=== PATIENT | male | born 1950 | race Caucasian/White ===

== ENCOUNTER 2025-08-06 14:13 | Inpatient (IN) | payer OTHER, SELFPAY ==
[2025-08-06] VITALS (7 sets, daily range): BP systolic 108–123; BP diastolic 65–79; PULSE 73–119; RESP 18–24; TEMP 36.4–36.6; O2SAT 96–100; BMI 22.1
--- NOTE | ~2025-08-06 | XR_ITS ---
XR chest 1V portable 08/07/2025 05:40 Indication: Dyspnea Procedure: AP portable chest Comparison: Comparison to multiple prior studies sequentially, with oldest reviewed study dated 04/09/2018. Findings: Cardiomegaly. Mild interstitial edema. Elevated right diaphragm. There is a right-sided pacemaker with lead tips in the right atrium and right ventricle respectively. Impression: 1: Mild interstitial edema. Reviewed, dictated and finalized at location B. Impression: 1: Mild interstitial edema.
--- NOTE | ~2025-08-06 | XR_ITS ---
Examination: XR chest ET placement Clinical History: et placement + central line placement Comparison: 1 day prior Technique: Portable AP Findings: ET tube, left subclavian central line. Right pacemaker. Cardiomegaly. No pneumothorax. Scattered foci bilateral airspace disease. Elevated right hemidiaphragm. No acute bony abnormality. IMPRESSION: 1. ET tube in place. 2. Left subclavian central line. No pneumothorax. 3. Persistent foci bilateral interstitial pulmonary edema and/or multifocal airspace disease. Reviewed, dictated and finalized at location R. IMPRESSION: 1. ET tube in place. 2. Left subclavian central line. No pneumothorax. 3. Persistent foci bilateral interstitial pulmonary edema and/or multifocal ai rspace disease.
--- NOTE | ~2025-08-06 | US_ITS ---
US venous doppler LE BI INDICATION: Pain and swelling in both lower extremities. COMPARISON: None. TECHNIQUE: The deep veins of both lower extremities were evaluated with Duplex Doppler, color Doppler, and high-resolution B-mode sonography. Evaluated veins include the common femoral, femoral, and popliteal veins. The calf veins were also evaluated. Compression and augmentation maneuvers were performed. FINDINGS: DVT within the right posterior tibialis and peroneal vein as well as in the left popliteal. IMPRESSION: Bilateral DVT. Reviewed, dictated and finalized at location S. IMPRESSION: Bilateral DVT.
--- NOTE | ~2025-08-06 | XR_ITS ---
Examination: XR abdomen gastric tube insert Clinical History: OG PLACEMENT Comparison: Chest x-ray one hour prior Technique: Portable AP chest abdomen Findings/impression: 1. Exam mostly chest, with upper abdomen. 2. NG tube sidehole at GE junction, recommend further advancement. 3. No cardiopulmonary change. Reviewed, dictated and finalized at location R.
--- NOTE | ~2025-08-06 | NM_ITS ---
EXAMINATION: NM lung vent and perfusion DATE: 08/07/2025 11:33 INDICATION: Elevated d-dimer TECHNIQUE: 15.4 mCi xenon-133 by inhalation and 5.4 mCi Tc-99m MAA by intravenous route. Scintigraphic images of the chest were obtained. COMPARISON: Chest radiograph dated 08/07/2025 FINDINGS: There is homogeneous radiotracer activity throughout the lungs initially on the single breath ventilation sequence which demonstrates elevation of the right hemidiaphragm. There is a region of air trapping with delayed washout right lower lung zone. There is a large perfusion defect involving the medial and lateral segments of the right middle lobe. Small photopenic defect projecting over the anterolateral right midlung likely resulting from shadowing related to the cardiac pacemaker is seen on prior radiographs. There is otherwise relatively homogeneous perfusion throughout the lungs. IMPRESSION: 1. Nondiagnostic (low or intermediate) probability for pulmonary embolism. Reviewed, dictated and finalized at location A.
--- NOTE | 2025-08-06 14:05 | ADMGEN ---
This patient, Robert Wilson, was admitted to IMU Room 207-01. Patient/family oriented to hospital policies and general routines including ID bracelet, bed and alarms, visiting hours, pain management, procedures, bathroom and other care routines, personal items, smoking policy, room service/diet, and visiting hours. Information on how to activate the Rapid Response Team has been discussed. Patient/Family are encouraged to report perceived risks to care and to ask questions if they do not understand what they are told or what they should do.
--- OUTSIDE RECORDS SUMMARY | 2025-08-06 14:19 | XMS_ITS | Encounter Summary ---
Author Organization [facility] Healthcare Address [address] [place] [address] Care Team Providers Care Bridge Gang Worker Name Role Phone Rigoberto Ruffin MD Primary Care Provider [phone] Bert Carreon MD Unavailable [phone] Unknown, Notinfile Unavailable Unavailable Sirisha Roberson MD Unavailable [phone] Spec, Tristan CREWS Unavailable Encounter Details Date Type Department Care Team (Late st Contact Info) Description 07/13/2025 Telephone [facility] Cardiology [address] [address] Mirella Lin MA Social History Tobacco Use Types Packs/Day Years Used Date Smoking Tobacco: Never Smokeless Tobacco: Never Alcohol Use Standard Drinks/Week Comments Yes 1 (1 standard drink = 0.6 oz pur e alcohol) socially OASIS D0700: Social Isolation Answer Da te Recorded Frequency of experiencing loneliness or isolatio n Never 10/04/2024 OASIS A1250: Transportation Answer Date Recorded Lack of Transportation (Medical) No 10/04/2024 Lack of Transportation (Non-Medical) No 10/04/2024 Patient Unable or Declines to Respond No 10/04/2024 OASIS B1300: Health Literacy Answer Luciano e Recorded Frequency of needing help to read materials from doctor or pharmacy Never 10/04/2024 AUDIT-C Answer Date Recorded Q1: How often do you have a drink containing alcohol? Never 08/28/2024 Q2: How many drinks containi ng alcohol do you have on a typical day when you are drinking? Patient does not drink Q3: How often do you have si x or more drinks on one occasion? Never 08/28/2024 Personal Safety Answer Date Recorded Have you ever been in or are you currently in a harmful physical or emotional relationship or is someone making you feel afraid or unsafe? 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 Gender Identity Male 07/19/2021 10:30 AM CDT Sexual Orientation Not on file documented as of this encounter Plan of Treatment Not on file documented as of this encounter Visit Diagnoses Not on filedocumented in this encounter Care Teams Bridge Gang Worker Relationship Specialty Start [place] [address] [place] [address] PCP - General Family Practice 07/17/23 [place] [address] [place] [address] Surgeon Cardiothoracic Surgery 08/29/24 Unknown, Notinfile 08/29/24 Sirisha Roberson MD [address] [facility] [address] [place] [address] Consulting Physician Cardiology 08/29/24 Tristan Queen MD [address] [facility] [address] [place] [address] Consulting Physician Infectious Diseases 08/29/24 documented as of this encounter
--- OUTSIDE RECORDS SUMMARY | 2025-08-06 14:19 | XMS_ITS | Clinical Summary ---
Author Organization [facility] Address [address] [place] [address] Care Team Providers Care Director Of Business Continuity Name Role Phone Unavailable Primary Care Provider Unavailabl e Source Comments [facility] [employer],non-owned Affiliates and Associated Physician Practices is amultiple site organization consisting of ambulatory clinics and hospital sitesin [place], [place], [place] and [place]. This disclosure is being madepursuant to the Care Everywhere program and may not contain all information available regarding this patient. Last updated 18.[facility] [employer] Social History Tobacco Use Types Packs/Day Years Used Date Smoking Tobacco: Never Assessed Sex and Gender Information Value Date Recorded Sex Assigned at Not on file Legal Sex Male 4:16 PM CDT Gender Identity Not on file Sexual Orientation Not on file Plan of Treatment Health Maintenance Due Date Last Done Comments COLOGUARD (AGES 45-75) - COL ON CA SCREENING 1950 COLON MONITORING 1950 COLONOSCOPY - COLON CA SCREENING 1950 CT COLONOGRAPHY - COLON CA SCREENING 1950 Colorectal Cancer Screening 1950 FIT - COLON CA SCREENING 1950 FLEX SIG - COLON CA SCREENING 1950 LIPID TESTING 1950 MEDICARE AWV 12 MONTHS 1950 HEPATITIS C SCREENING 09/30/1968 DTAP/TDAP/TD VACCINES (1 - Tdap) 1969 PNEUMOCOCCAL VACCINE 50+ (1 of 1 - PCV) 2000 ZOSTER VACCINE (1 of 2) 2000 DEPRESSION SCREENING 10/08/2024 COVID-19 VACCINE (1 - 2023-2 5 season) 2025 INFLUENZA VACCINE (#1) 2025 Respiratory Syncytial Virus (RSV) Vaccine Pt: or over 60 yrs (1 - 1-dose 75+ series) 2025 HEPATITIS B VACCINE Aged Out No longe r eligible based on patient's age to complete this topic HIB VACCINE Aged Out No longer eligi ble based on patient's age to complete this topic HPV VACCINE Aged Out No longer eligi ble based on patient's age to complete this topic MENINGOCOCCAL (Group B) VACC INE SHARED DECISION-MAKING Aged Out No longer eligibl e based on patient's age to complete this topic MENINGOCOCCAL GROUPS A/C/Y/W VACCINE Aged Out No longer eligible b ased on patient's age to complete this topic Insurance [facility] MEDICARE ESSENCE MEDICARE ESSENCE MEDICARE ESSENCE MEDICARE ESSENCE MEDICARE ESSENCE MEDICARE ESSENCE MEDICARE
--- OUTSIDE RECORDS SUMMARY | 2025-08-06 14:19 | XMS_ITS | Encounter Summary ---
Author Organization [facility] Address [address] [facility] [address] [place] [address] Care Team Providers Care Sludge Filtration Attendant Name Role Phone Rock Rasmussen MD Primary Care Provider Rock Rasmussen MD Primary Care Provider Rigoberto Ruffin MD Primary Care Provider [phone] Bert Carreon MD Unavailable [phone] Unknown, Notinfile Unavailable Unavailable Sirisha Roberson MD Unavailable [phone] Tristan Queen MD Unavailable Encounter Details Date Type Department Care Team (Late st Contact Info) Description 02/13/2017 Orders Only [facility] Provider, MD He [address] [place] [address] Social History Tobacco Use Types Packs/Day Years Used Date Smoking Tobacco: Former Alcohol Use Standard Drinks/Week Comments No 0 (1 standard drink = 0.6 oz pur e alcohol) Sex and Gender Information Value Date Recorded Sex Assigned at Not on file 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 us Historical Provider [facility] DAIANA OLIVAS Final Result documented in this encounter Visit Diagnoses Not on filedocumented in this encounter Care Teams Sludge Filtration Attendant Relationship Specialty [place] [address] [place] [address] PCP - General 01/30/17 10/17/17 [place] [address] [place] [address] PCP - General Internal Medicine 10/18/17 07/16/23 [place] [address] [place] [address] PCP - General Family Practice 07/17/23 [place] [address] [place] [address] Surgeon Cardiothoracic Surgery 08/29/24 Unknown, Notinfile 08/29/24 Sirisha Roberson MD [address] [facility] [address] [place] [address] Consulting Physician Cardiology 08/29/24 Tristan Queen MD [address] [facility] [address] [place] [address] Consulting Physician Infectious Diseases 08/29/24 documented as of this encounter
--- OUTSIDE RECORDS SUMMARY | 2025-08-06 14:19 | XMS_ITS | Encounter Summary ---
Author Organization [facility] Address [address] [place] [address] Care Team Providers Care Casting Assistant Name Role Phone Unavailable Primary Care Provider Unavailabl e Encounter Details Date Type Department Care Team (Late st Contact Info) Description 08/05/2024 Lab Requisition [facility] - DermPath Lab [address] [place] [id number] Chaya Ramirez APRN-CNP [facility] DERMATOLOGY [address] [place] [phone] Neoplasm of uncertain behavior of skin Social History Tobacco Use Types Packs/Day Years Used Date Smoking Tobacco: Never Assessed Sex and Gender Information Value Date Recorded Sex Assigned at Not on file Legal Sex Male 4:16 PM CDT Gender Identity Not on file Sexual Orientation Not on file documented as of this encounter Plan of Treatment Not on file documented as of this encounter Procedures Procedure Name Priority Date/Time Associated Diagnosis Comments DERMATOPATHOLOGY Routine 08/05/2024 12:0 0 AM CDT Neoplasm of uncertain behavior of skin documented in this encounter Results * DERMATOPATHOLOGY (08/05/2024 12:00 AM CDT) Case Report Dermatopathology Report Case: [id number] Authorizing Provider: Chaya Ramirez, Collected: 08/05/2024 12:00 AM APPAREL STOCK CHECKER-FOREIGN DIPLOMAT Ordering Location: [facility] - Received: 08/06/2024 12:49 PM DermPath Lab Pathologist: Skylar Mast MD Specimen: Skin, right TMJ 2:21 PM CDT DERMATOPATHOLOGY LABORATORY Final Diagnosis Specimen A. 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 The specimen consists of a shave biopsy measuring 7x6x2 mm. Jar 0. 2:21 PM CDT DERMATOPATHOLOGY LABORATORY Microscopic Description Specimen A. SKIN, right TMJ: The epidermis shows parakeratosis, full thickness disorderly maturation of keratinocytes, mitoses at different levels, and dyskeratotic cells. Foci of acantholysis are present. There is a column of marked compact hyperkeratosis. 2:21 PM CDT DERMATOPATHOLOGY LABORATORY Disclaimer An external and internal positive and negative controls are appropriate for the histochemical, immunohistochemical and immunofluorescence stain(s) in this case (if any), except where stated explicitly. The performance characteristics of the stain(s) cited in this report were developed and its performance characteristic determined by the Dermatopathology Laboratory at [facility], directed by Dr. Venkat Arita. These tests need not be, and therefore are not, approved by the [place] Food and Drug Administration. The tests are used for clinical purposes. Billing Codes Specimen Charges Stain Charges 53949 1 2:21 PM CDT DERMATOPATHOLOGY LABORATORY Embedded Images 2:21 PM CDT DERMATOPATHOLOGY LABORATORY Pathology/Cytolog y TISSUE SPECIMEN FROM SKIN / Unknown 08/05/2024 08/06/2024 12:49 PM CDT us Chaya Ramirez APPAREL STOCK CHECKER-FOREIGN DIPLOMAT LAB - PATHOLOGY/CY TOLOGY ORDERABLES Final Result DERMATOPATHOLOGY LABORATORY [facility] - Department of Dermatology [address] [place] [address], [facility] [phone] documented in this encounter Visit Diagnoses Diagnosis Neoplasm of uncertain behavior of skin documented in this encounter
--- OUTSIDE RECORDS SUMMARY | 2025-08-06 14:20 | XMS_ITS | Clinical Summary ---
Author Organization [facility] [address] Address [address] [place] [address] Care Team Providers Care Operator Weapon Locating Radar Name Role Phone Rigoberto Ruffin MD Primary Care Provider [phone] Bert Carreon MD Unavailable [phone] Unknown, Notinfile Unavailable Unavailable Sirisha Roberson MD Unavailable [phone] Tristan Queen MD Unavailable Allergies No known active allergies Medications albuterol HFA (PROVENTIL HFA,VENTOLIN HFA) 90 mcg/actuation inhaler inhale 2 puff by inhalation route every 4 - 6 hours as needed 0 Inhaler 0 5 Active Additional Information Patient taking differently:90 mcginhalation Every 8 hours PRN, Reported on 07/14/2025 latanoprost (XALATAN) 0.005 % ophthalmic solutionIndica tions:open angle glaucoma Administer 1 drop into both eyes nightly Active mepolizumab (NUCALA) 100 mg/mL syringeIndicat ions:eosinophi lic asthma Inject 1 mL (100 mg total) under the skin every 30 (thirty) days Active Trelegy Ellipta 200-62.5-25 mcg inhalerIndicat ions:Maintenan ce Therapy for Asthma Inhale 1 puff every morning Active metoprolol XL (TOPROL-XL) 25 mg extended release tabletIndicati ons:Cardiomyop athy, idiopathic Take 1 tablet by mouth once daily 90 tablet 3 5 Active Airsupra 90-80 mcg/actuation HFA aerosol inhaler Inhale 2 puffs every 4 (four) hours as needed 5 Active indomethacin (INDOCIN) 50 mg capsule Take 1 capsule (50 mg total) by mouth as needed 5 Active Active Problems Problem Noted Date Diagnosed Date 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 He underwent pacemaker device removal and lead extraction on 08/20/24, intra-op ENIO without vegetations but mentions mobile echodensities seen attached to leads within the right atrium. Device (not lead) culture growing rare braydon parapsilosis, for which he was started on micafungin. Braydon S Fluconazole, transitioned from micafungin to Fluconazole. Given Fluconazole 800 mg PO x 1, discharged on Fluconazole 200 mg PO daily (renally dosed), with initial plan to treat for six weeks. Given device culture grew Braydon parapsilosis and ENIO demonstrated mobile echodensities attached to leads in right atrium, antifungal course extended from six weeks to six months given high morbidity and mortality risk of recurrent fungal CIED at last ID clinic visit, dose adjusted 09/15/24 to Fluconazole 400 mg PO daily (EOT 01/10/25) - repeat ECG today due to senior living QT prolonging medication. Qtc = 425 - repeat CMP today. - I discussed with the patient my impression, the imaging findings, and treatment plan in detail with a focus on the etiology, natural history, and management of symptoms. - I discussed with the patient the rationale for treatment, culture results, risk of recurrent infection, signs/symptoms of recurrent infection, and to contact ID clinic with any questions or concerns. Pacemaker infection 08/15/2024 Assessment & Plan (09/17/2024 10:46 AM [employer]ASS SAWYER): Blood cultures NG, TTE with no e/o endocarditis, superficial wound cultures 08/14/24 grew braydon parapsilosis which was initially felt to be a contaminant. He underwent pacemaker device removal and lead extraction on 08/20/24, intra-op ENIO without vegetations but mentions mobile echodensities seen attached to leads within the right atrium. Device (not lead) culture growing rare braydon parapsilosis, for which he was started on micafungin. Braydon S Fluconazole, transitioned from micafungin to Fluconazole. Given Fluconazole 800 mg PO x 1, discharged on Fluconazole 200 mg PO daily (renally dosed), with initial plan to treat for six weeks. - CrCl 50ml/min -> will obtain repeat CMP and increase Fluconazole dose to 400 mg daily if CrCl stable. - last ECG 08/12/24 Qtc 428 - given device culture grew Braydon parapsilosis and ENIO demonstrated mobile echodensities attached to leads in right atrium, will extend antifungal course from six weeks to six months given high morbidity and mortality risk of recurrent fungal CIED. - I discussed with the patient my impression, the imaging findings, and treatment plan in detail with a focus on the etiology, natural history, and management of symptoms. - I discussed with the patient the rationale for treatment, culture results, risk of recurrent infection, signs/symptoms of recurrent infection, and to contact ID clinic with any questions or concerns. Asthma 08/13/2024 Assessment & Plan (08/26/2024 12:40 PM [employer]ASS SAWYER): -Continue home Trelegy MDI 1 puff, daily -Monitor O2 Sats, on RA -Continue PRN Albuterol -Follows with outpatient pulmonology Assessment & Plan (08/25/2024 12:25 PM [employer]ASS SAWYER): -Continue home Trelegy daily -Monitor O2 Sats, on RA -Continue PRN Albuterol -Follows with outpatient pulmonology Assessment & Plan (08/24/2024 12:11 PM [employer]ASS SAWYER): -Continue home Trelegy daily -Monitor O2 Sats, on RA -Continue PRN Albuterol -Follows with outpatient pulmonology Assessment & Plan (08/22/2024 1:41 PM [employer]ASS SAWYER): -Continue home Trelegy daily -Monitor O2 Sats, on RA -Continue PRN Albuterol -Follows with outpatient pulmonology Assessment & Plan (08/20/2024 10:59 AM [employer]ASS SAWYER): -Continue home Trelegy daily -Monitor O2 Sats, on RA -Continue PRN Albuterol -Follows with outpatient pulmonology Assessment & Plan (08/17/2024 12:23 PM [employer]ASS SAWYER): -Continue home Trelegy daily -Monitor O2 Sats, on RA -Continue PRN Albuterol -Follows with outpatient pulmonology Assessment & Plan (08/16/2024 12:29 PM [employer]ASS SAWYER): -Continue home Trelegy daily -Monitor O2 Sats, on RA -Continue PRN Albuterol -Follows with outpatient pulmonology Assessment & Plan (08/13/2024 4:06 PM [employer] SAWYER): -Continue home Trelegy daily -Monitor O2 Sats, on RA -Continue PRN Albuterol -Follows with outpatient pulmonology History of sick sinus syndrome 08/13/2024 Assessment & Plan (08/28/2024 12:28 PM [employer]ICAL [employer]ASS SAWYER): -[employer] dual-chamber PPM placed in 2018 for SSS -device extracted 08/20 -Monitor telemetry, NSR -EP to re-implant device today (following 24 hrs of Micafungin) Assessment & Plan (08/25/2024 12:25 PM [employer] SAWYER): -[employer] dual-chamber PPM placed in 2018 for SSS -device extracted 08/20 -Monitor telemetry, NSR -EP to re-implant device on 08/25 Assessment & Plan (08/24/2024 12:10 PM OPTICAL GLASS SAWYER): -[employer] dual-chamber PPM placed in 2018 for SSS -device extracted 08/20 -Monitor telemetry, NSR -EP to re-implant device on 08/25 Assessment & Plan (08/22/2024 1:41 PM [employer]ICAL [employer]ASS SAWYER): -[employer] dual-chamber PPM placed in 2018 for SSS -device extracted 08/20 -Monitor telemetry, NSR -EP to re-implant device on 08/25 Assessment & Plan (08/20/2024 10:59 AM [employer]ASS SAWYER): -[employer] dual-chamber PPM placed in 2018 -Monitor telemetry, A-paced 70 -PPM interrogation on 08/13 Assessment & Plan (08/17/2024 12:23 PM [employer]ASS SAWYER): -[employer] dual-chamber PPM placed in 2018 -Monitor telemetry, A-paced 70 -PPM interrogation on 08/13 Assessment & Plan (08/16/2024 12:29 PM [employer]ASS SAWYER): -[employer] dual-chamber PPM placed in 2018 -Monitor telemetry, A-paced 70 -PPM interrogation on 08/13 Assessment & Plan (08/14/2024 1:06 PM OPTICAL GLASS SAWYER): -[employer] dual-chamber PPM placed in 2018 -Monitor telemetry, A-paced 70 -PPM interrogation on 08/13 Hypertension 08/13/2024 Assessment & Plan (08/26/2024 12:39 PM [employer]ASS SAWYER): -Monitor VS q4h -Continue Metoprolol-titrate dose to response -Encourage low sodium diet Assessment & Plan (08/25/2024 12:24 PM [employer] SAWYER): -Monitor VS -Continue Metoprolol-titrate dose to response -Encourage low sodium diet Assessment & Plan (08/24/2024 12:10 PM [employer]ASS SAWYER): -Monitor VS -Continue Metoprolol-titrate dose to response -Encourage low sodium diet Assessment & Plan (08/22/2024 1:39 PM [employer]ASS SAWYER): -Monitor VS -Continue Metoprolol-titrate dose to response -Encourage low sodium diet Assessment & Plan (08/20/2024 10:59 AM [employer]ASS SAWYER): -Monitor VS -Continue Metoprolol -Encourage low sodium diet Assessment & Plan (08/18/2024 2:05 PM OPTICAL GLASS SAWYER): -Monitor VS -Continue Metoprolol -Encourage low sodium diet Assessment & Plan (08/17/2024 12:22 PM [employer]ASS SAWYER): -Monitor VS -Continue Metoprolol -Encourage low sodium diet Assessment & Plan (08/16/2024 12:29 PM [employer]ASS SAWYER): -Monitor VS -Continue Metoprolol -Encourage low sodium diet Assessment & Plan (08/13/2024 4:11 PM [employer] SAWYER): -Monitor VS -Continue Metoprolol -Encourage low sodium diet Pacemaker complications 08/12/2024 Assessment & Plan (08/28/2024 12:49 PM [employer]ASS SAWYER): -Original implant of dual-chamber in 2017 -S/P PPM revision in April 2024 for swelling -PPM interrogated on 08/13, not pacer dependent per report, EP to evaluate -08/13 TTE: EF 45%, no valvular disease or infection noted -No need for ENIO per Dr. Carreon -ID consult- wd cxs (+) Braydon-Micafungin started-->cxs finalized a sensitive to Fluconazole. Plan DC Micafungin, start Fluconazole 800 mg po x 1 today, then 200 mg po q day x 6 weeks (thru 10/09/24) -EP following -08/20 PPM extracted -EP to reimplant pacer today Assessment & Plan (08/25/2024 12:27 PM [employer] SAWYER): -Original implant of dual-chamber in 2017 -S/P PPM revision in April 2024 for swelling -PPM interrogated on 08/13, not pacer dependent per report, EP to evaluate -08/13 TTE: EF 45%, no valvular disease or infection noted -No need for ENIO per Dr. Carreon -ID consult to evaluate for infectious process of PPM exposure, site cultures sent on 08/14 per ID -EP following -08/20 PPM extracted -EP to reimplant pacer on Sunday 08/26 OR cultures now growing braydon- ID says add micafungin (sent for sensitivities, still hoping to get out on PO abx) Assessment & Plan (08/24/2024 12:10 PM [employer] SAWYER): -Original implant of dual-chamber in 2018 -S/P PPM revision in April 2024 for swelling -PPM interrogated on 08/13, not pacer dependent per report, EP to evaluate -08/13 TTE: EF 45%, no valvular disease or infection noted -No need for ENIO per Dr. Carreon -ID consult to evaluate for infectious process of PPM exposure, site cultures sent on 08/14 per ID -Hold off on antibiotics at this time per ID -EP following -08/20 PPM extracted -EP to reimplant pacer on Sunday 08/26 Assessment & Plan (08/22/2024 1:39 PM [employer] SAWYER): -Original implant of dual-chamber in 2017 -S/P PPM revision in April 2024 for swelling -PPM interrogated on 08/13, not pacer dependent per report, EP to evaluate -08/13 TTE: EF 45%, no valvular disease or infection noted -No need for ENIO per Dr. Carreon -ID consult to evaluate for infectious process of PPM exposure, site cultures sent on 08/14 per ID -Hold off on antibiotics at this time per ID -EP following -08/20 PPM extracted -EP to reimplant pacer on 08/25 Assessment & Plan (08/27/2024 1:44 PM [employer] SAWYER): Patient is a 73 y.o. man with a history of sick sinus syndrome s/p permanent pacemaker (2017), severe obstructive asthma with hx of prolonged steroid exposure, dilated non-ischemic cardiomyopathy who was admitted on 08/12/2024 with exposed pacemaker generator with concern for CIED infection. ID was consulted on 08/13 for antibiotic recommendations. The patient has no current signs or symptoms of surrounding soft tissue infection to suggest a severe cellulitis or abscess to necessitate immediate antibiotics. However, communication with the skin and ongoing drainage with failure of the wound to heal do raise concern for a deeper infection and atypical organism causing this infection given its indolent course. Blood cultures NGTD, TTE without significant findings, superficial culture obtained growing braydon parapsilosis. The braydon is favored to be a contamination rather than a true pathogen given this is a superficial swab, no need to treat. No plans for ENIO per Dr. Carreon. He went for pacer removal on 08/20 with device and both leads removed and sent for culture. Intra-op ENIO without vegetations but mentions Mobile echodensities seen attached to leads within the right atrium. Given findings of echodensity on leads, would recommend increasing cefazolin dose to 2g IV Q8H. Device (not lead) culture growing rare braydon parapsilosis and patent was started on micafungin. Results: -Blood cultures 08/12: NG -TTE 08/13: No significant valvular abnormalities noted -Left chest wound 08/14: Braydon parapsilosis -Blood cultures 08/19: NGTD -Intra-op ENIO 08/20: -Pacemaker device 08/20: braydon parapsilosis (fluconazole susceptible) -Atrial lead 08/20: NG -Ventricular lead 08/20: NG Patient has continued on micafungin and cefazolin awaiting pacer placement. Susceptibles for braydon have returned and organism can be treated with fluconazole. Qtc on 08/12 428, no medication contraindications noted with fluconazole on review. Recommend transitioning micafungin to fluconazole to complete 6 weeks of treatment. Recommendations: -continue cefazolin until pacer is placed. -d/c micafungin. -Start patient on fluconazole 800mg Po x1 dose followed by 200mg PO Q24H -Patient will need 6 weeks of fungal treatment -Thank you for allowing us to participate in the care of this patient. For questions or concerns, please do not hesitate to reach out. Assessment & Plan (08/20/2024 10:59 AM [employer]ASS SAWYER): -Original implant of dual-chamber in 2017 -S/P PPM revision in April 2024 for swelling -PPM interrogated on 08/13, not pacer dependent per report, EP to evaluate -08/13 TTE: EF 45%, no valvular disease or infection noted -No need for ENIO per Dr. Carreon -ID consult to evaluate for infectious process of PPM exposure, site cultures sent on 08/14 per ID -Hold off on antibiotics at this time per ID -EP following -08/20 PPM extracted -reconsult EP to discuss reimplantation plan Assessment & Plan (08/18/2024 1:14 PM [employer]ASS SAWYER): -Original implant of dual-chamber in 2017 -S/P PPM revision in April 2024 for swelling -PPM interrogated on 08/13, not pacer dependent per report, EP to evaluate -08/13 TTE: EF 45%, no valvular disease or infection noted -No need for ENIO per Dr. Carreon -ID consult to evaluate for infectious process of PPM exposure, site cultures sent on 08/14 per ID -Hold off on antibiotics at this time per ID -EP following -Planning OR on Sunday or Sunday Put In OR orders hopefully going on Sunday Assessment & Plan (08/17/2024 12:22 PM [employer]ASS SAWYER): -Original implant of dual-chamber in 2017 -S/P PPM revision in April 2024 for swelling -PPM interrogated on 08/13, not pacer dependent per report, EP to evaluate -08/13 TTE: EF 45%, no valvular disease or infection noted -No need for ENIO per Dr. Carreon -ID consult to evaluate for infectious process of PPM exposure, site cultures sent on 08/14 per ID -Hold off on antibiotics at this time per ID -EP following -Planning OR on Sunday or Sunday Put In OR orders and made NPO @ [facility] Assessment & Plan (08/16/2024 12:29 PM [employer]ASS SAWYER): -Original implant of dual-chamber in 2017 -S/P PPM revision in April 2024 for swelling -PPM interrogated on 08/13, not pacer dependent per report, EP to evaluate -08/13 TTE: EF 45%, no valvular disease or infection noted -No need for ENIO per Dr. Carreon -ID consult to evaluate for infectious process of PPM exposure, site cultures sent on 08/14 per ID -Hold off on antibiotics at this time per ID -EP following -Planning OR on Sunday or Sunday Assessment & Plan (08/15/2024 12:48 PM [employer] SAWYER): -Original implant of dual-chamber in 2017 -S/P PPM revision in April 2024 for swelling -PPM interrogated on 08/13, not pacer dependent per report, EP to evaluate -08/13 TTE: EF 45%, no valvular disease or infection noted -No need for ENIO per Dr. Carreon -ID consult to evaluate for infectious process of PPM exposure, site cultures sent on 08/14 per ID -Hold off on antibiotics at this time per ID -EP following -NPO just incase Dr. Live can add on today Bilateral carotid artery stenosis 07/10/2023 Pain in both lower extremities 03/15/2023 Eosinophilia in diseases classified elsewhere Polyp of colon, unspecified part of colon, unspe cified type 07/08/2020 Erectile dysfunction 07/14/2019 Other viral warts 01/21/2019 Status post left inguinal hernia repair 11/27/19 19 H/O sick sinus syndrome 04/24/2018 Cardiac pacemaker in situ 04/08/2018 Overview (08/28/2024): Victor Assurity Dual Pacemaker. Dx; SSS. DOI 08/28/2024-Karol Castillo. Ride side implant. [facility]. Sinoatrial node dysfunction 04/04/2018 Cardiomyopathy, idiopathic 10/18/2017 Cardiomegaly 10/13/2015 Chronic obstructive pulmonary disease 10/13/2015 Glaucoma 10/13/2015 Hypertension 10/13/2015 Encounters Date Type Department Care Team Description 07/30/2025 Telephone [facility] [address] [facility] [address] [place] [phone] Radha Wade MA Clearance Faxed 07/17/2025 7:00 AM CDT Ancillary Procedure [facility] [address] [place] [address] [place] [phone] Sinoatrial node dysfunction (HCC); Cardiac pacemaker in situ 07/14/2025 1:45 PM CDT Office Visit [facility] [address] [place] [address] [place] [address] [place] [phone] Harlan David MD Sinoatrial node dysfunction (HCC) (Primary Dx); Cardiac pacemaker in situ 07/13/2025 Telephone [facility] [address] [place] [address] [place], [place] [address] [phone] Mirella Mani MA 07/09/2025 Telephone [facility] [address] [place] [address] [place] [address] [address] Harlan David MD 07/07/2025 9:45 AM CDT Ancillary Procedure [facility] [address] [place] [address] [place], [place] [address] [phone] Sinoatrial node dysfunction (HCC); Cardiac pacemaker in situ 05/12/2025 8:45 AM CDT Ancillary Procedure [facility] [address] [place] [address] [place] [phone] Cardiac pacemaker in situ (Primary Dx); Sick sinus syndrome (HCC); Cardiomyopathy, idiopathic (HCC) 05/12/2025 Orders Only [facility] [address] [place] [address] [address] [facility] [place] [address] Harlan aDvid MD Sinoatrial node dysfunction (HCC) (Primary Dx); Cardiac pacemaker in situ from Last 3 Months Surgical History Surgery Date Site/Laterality Comments CATARACT EXTRACTION 2014 HERNIA REPAIR 2014 INSERT / REPLACE / REMOVE PACEMAKER 04/08/2018 COLONOSCOPY polyp removed Medical History Medical History Date Comments Glaucoma 2017 Heart disease 2000 PAF (paroxysmal atrial fibrillation) Cardiomyopathy SSS (sick sinus syndrome) (HCC) Bilateral carotid artery stenosis Hypertension COPD (chronic obstructive pulmonary disease) Family History Medical History Relation Name Comments No Known Problems Father Arthritis Mother Christina Relation Name Status Comments Father Mother Christina Social History Tobacco Use Types Packs/Day Years Used Date Smoking Tobacco: Never Smokeless Tobacco: Never Tobacco Cessation:Counseling Given: Not Answered Alcohol Use Standard Drinks/Week Comments Yes 1 [...] on file Legal Sex Male 3:25 PM [employer] SAWYER Gender Identity Male 07/19/2021 10:30 AM CDT Sexual Orientation Not on file Obstetrics History Last Filed Vital Signs Vital Sign Reading Time Taken Comments Blood Pressure 90/60 07/14/2025 1:16 PM CDT Pulse 90 07/14/2025 1:16 PM CDT Temperature 36.5 C (97.7 F) 11/17/2024 12:41 PM [employer]ASS SAWYER Respiratory Rate 14 07/14/2025 1:16 PM CDT Oxygen Saturation 97% 07/14/2025 1:16 PM CDT Inhaled Oxygen Concentration - - Weight 68.5 kg (151 lb) 07/14/2025 1:16 PM CDT Height 172.7 cm (5' 8) 07/14/2025 1:16 PM CDT Body Mass Index 22.96 07/14/2025 1:16 PM CDT Plan of Treatment Health Maintenance Due Date Last Done Comments Colon Cancer Screening-Colonoscopy 1950 Depression Screening 1950 Hepatitis C Screening 1950 Hepatitis B Screening 1968 Zoster Vaccine (1 of 2) 2000 Well Visit 65+ 2015 Covid-19 Vaccine (4 - 2024-2 6 season) 2025 08/01/2021, 12/17/2020, 11/19/2020 Influenza Vaccine (#1) 2025 , 06/15/2023, 06/09/2022, Additional history exists Fall Risk Assessment 08/29/2025 08/29/2024 DTaP/Tdap/Td Vaccine (2 - Td or Tdap) 10/13/2025 10/13/2015 Pneumococcal vaccine 65+ Completed 07/17/2019, 03/2016 Medical Devices Implanted Type Area Chocolate Finisher Operator Device Identifier Shelf Expiration Date Model / Serial / Lot Victor Vascular Active Fixation Steroid Eluting Latex Free Sterile Right Atrium Ventricle Ultipace 52cm [id number] - [id number] - [id number] Implanted:Qty: 1 on 08/28/2024 by Sirisha Roberson MD at [facility] Lead Right: Atria Victor Vascular 07/07/2027 [id number]/ [id number] / [id number] / [id number] Victor Vascular Active Fixation Steroid Eluting Latex Free Sterile Right Atrium Ventricle Ultipace 58cm [id number] - [id number] - [id number] Implanted:Qty: 1 on 08/28/2024 by Sirisha Roberson MD at [facility] Lead Right: Ventricle Victor Vascular 07/07/2027 [id number]/ [id number] / [id number] / [id number] Med[employer]onic Inc Tyrx Absorbable Antibacterial Envelope Large 3.3x2.9in [id number] - [id number] - [id number] Implanted:Qty: 1 on 08/28/2024 by Sirisha Roberson MD at [facility] Other - see comments Right: Chest Wall Medtronic Inc 06/11/2025 [id number] / [id number] / [id number] Description:Antibacterial en velope Pacemaker-04/08/20 18 Implanted:2017 by Harlan David MD (Quantity not on file) Pacemaker Chest [employer] Sinus Node Dysfunction [employer] Assurity Mri [id number] 2 Chamber Is-1 Connector Thk6mm Pacemaker [id number] - [id number] - [id number] Implanted:Qty: 1 on 08/28/2024 by Sirisha Roberson MD at [facility] Pacemaker Right: Chest Wall [employer] 01/05/2026 [id number] / [id number] / [id number] Medtronic Inc Tyrx Absorbable Antibacterial Envelope-Med 2.7x2.5in [id number] - [id number] Implanted:Qty: 1 on 04/18/2024 by Fredy Tobias MD at [facility] Medtronic [facility] 01/19/2025 [id number] / / [id number] Procedures Procedure Name Priority Date/Time Associated Diagnosis Comments DEVICE CHECK - REMOTE Routine 07/17/2025 7:58 AM CDT Sinoatrial node dysfunction (HCC) Cardiac pacemaker in situ ELECTROCARDIOGRAM REPORT Routine 07/14/2025 Sinoatrial node dysfunction (HCC) DEVICE CHECK - REMOTE Routine 07/09/2025 10:54 AM CDT Sinoatrial node dysfunction (HCC) Cardiac pacemaker in situ DEVICE CHECK - REMOTE Routine 05/12/2025 10:03 AM CDT Sick sinus syndrome (HCC) Cardiomyopathy, idiopathic from Last 3 Months Results * DEVICE CHECK - REMOTE (07/17/2025 7:58 AM CDT) Anatomical Region Laterality Modality Other Narrative 07/27/2025 7:18 AM CDT Victor Assurity Dual Pacemaker. Dx; SSS. DOI 08/28/2024-Karol Castillo. Ride side implant. Benito remote. Unscheduled DDD Pacemaker Remote due to increased AFib burden Transmission attached. Battery status: 2.99 V , 9.8-10.8 years remaining battery life to TREY. Stable lead impedances, pacing and sensing thresholds. Presenting rhythm: /VS AP-1.2%, CUSTOMER SERVICE OFFICER-< 1% 7 AT/AF episodes noted, longest episode was 19 hours in duration, IEGM demonstrates AFib. AF [place] 2.8%. Reported AFib burden on 07/09/25 was < 1%. No Ventricular high rate episodes detected. Medications: Toprol XL. See scanned report. Office pacemaker follow up: due in 6 months. Carter remote f/u 08/11/2025. Meet Gutierres, TOSIN us Harlan David MD [facility] PROC EDURES Final Result * Electrocardiogram Report (07/14/2025) 07/14/2025 Harlan David MD ECG ORDERABLES Edited R esult - Final * DEVICE CHECK - REMOTE (07/09/2025 10:54 AM CDT) Anatomical Region Laterality Modality Other Narrative 07/09/2025 2:59 PM CDT Victor Assurity Dual Pacemaker. Dx; SSS. DOI 08/28/2024-Karol Castillo. Ride side implant. Benito remote. Unscheduled DDD Pacemaker Remote d/t alert notification for Long AT/AF Episode. Transmission attached. Battery status: 2.99V , 10.0 years remaining battery life to TREY. Stable lead impedances, pacing and sensing thresholds. Presenting rhythm: -VS. AP-1.2%, CUSTOMER SERVICE OFFICER-<1%. 2 AT/AF episodes noted, longest episode was 9.0 hours in duration on 07/06/2025, IEGM demonstrates Afib/Aflutter. AF [place] <1%. No Ventricular high rate episodes detected. Medications: Toprol XL. See scanned report. Office pacemaker follow up: due in 6 months. Carter remote f/u 08/11/2025. Martha Pina RN Harlan David MD [facility] PROC EDURES Final Result * DEVICE CHECK - REMOTE (05/12/2025 10:03 AM CDT) Anatomical Region Laterality Modality Other Narrative 06/12/2025 12:[address] [place] Dual pacemaker. Dx; Sinus Node Dysfunction. DOI 04/08/2018. Carter remote monitoring Q3 mo, office pacer checks Q1 yr. Battery Advisory. Routine DDD Pacemaker Remote. Transmission attached. Battery status: 2.99 V , 10.2-11.3 years remaining battery life to TREY. Stable lead impedances, pacing and sensing thresholds. Presenting rhythm: /VS AP-2.6%, CUSTOMER SERVICE OFFICER-< 1% 1 AT/AF episodes noted, longest episode was 10 seconds in duration, IEGM demonstrates SVT. AF [place] < 1%. No Ventricular high rate episodes detected. Medications: Toprol-XL 25 mg See scanned report. Office pacemaker follow up: 6 months Carter remote f/u 08/11/25. Meet Gutierres RN Harlan David MD [facility] CARDIAC SERVICES PROC EDURES Final Result from Last 3 Months Insurance [facility] [place] [id number] Advance Directives For more information, please contact: [phone] * Full Code (Latest Code Status on File) Date Activated Date Inactivated Comments 08/12/2024 6:49 PM 08/29/2024 5:44 PM Care Teams Operator Weapon Locating Radar Relationship Specialty Start [place] [address] [place] [address] PCP - General Family Practice 07/17/23 [place] [address] [place] [address] Surgeon Cardiothoracic Surgery 08/29/24 Unknown, Notinfile 08/29/24 Sirisha Roberson MD [address] [facility] [address] [place] [address] Consulting Physician Cardiology 08/29/24 Tristan Queen MD [address] [facility] [address] [place] [address] Consulting Physician Infectious Diseases 08/29/24
--- OUTSIDE RECORDS SUMMARY | 2025-08-06 14:20 | XMS_ITS | Encounter Summary ---
Author Organization [facility] Address [address] [facility] [place] [address] Care Team Providers Care Elder Counselor Name Role Phone Unavailable Primary Care Provider Unavailabl e Encounter Details Date Type Department Care Team (Late st Contact Info) Description 01/31/2024 Lab Requisition [facility] - DermPath Lab [address] [place] [id number] Raymundo Ramirez MD [facility] DERMATOLOGY [address] [place] [phone] Neoplasm of uncertain behavior of skin [...] Priority Date/Time Associated Diagnosis Comments DERMATOPATHOLOGY Routine 01/31/2024 3:33 AM CDT Neoplasm of uncertain behavior of skin documented in this encounter Results * DERMATOPATHOLOGY (01/31/2024 3:33 AM CDT) Case Report Dermatopathology Report Case: [id number] Authorizing Provider: Raymundo Ramirez MD Collected: 01/31/2024 03:33 AM Ordering Location: [facility] Physician [facility] - Received: 02/04/2024 09:28 AM DermPath Lab Pathologist: Martina Mast MD Specimens: A) - Skin, left lateral inferior upper back B) - Skin, mid chest 1:34 PM CDT DERMATOPATHOLOGY LABORATORY Final Diagnosis Specimen A. SKIN, left lateral inferior upper back: BASAL CELL CARCINOMA, NODULAR TYPE (C44.519) Specimen B. SKIN, mid chest: BASAL CELL CARCINOMA, NODULAR TYPE (C44.519) 1:34 PM CDT DERMATOPATHOLOGY LABORATORY at 1334 CDT Clinical History A: Recurrent Basal Cell Carcinoma B: Basal Cell Carcinoma 1:34 PM CDT DERMATOPATHOLOGY LABORATORY Gross Description Specimen A: Received is one formalin filled container labeled with the patient's name and designated left lateral inferior upper back. The specimen consists of a shave biopsy measuring 12x8x2 mm. Jar 0. Specimen B: Received is one formalin filled container labeled with the patient's name and designated mid chest. The specimen consists of a shave biopsy measuring 21x20h8 mm. Jar 0. 1:34 PM CDT DERMATOPATHOLOGY LABORATORY Microscopic Description Specimen A. SKIN, left lateral inferior upper back: Within the dermis there are aggregates of basaloid cells with a high nuclear to cytoplasmic ratio and peripheral palisading. Specimen B. SKIN, mid chest: Within the dermis there are aggregates of basaloid cells with a high nuclear to cytoplasmic ratio and peripheral palisading. 1:34 PM CDT DERMATOPATHOLOGY LABORATORY Disclaimer An external and internal positive and negative controls are appropriate for the histochemical, immunohistochemical and immunofluorescence stain(s) in this case (if any), except where stated explicitly. The performance characteristics of the stain(s) cited in this report were developed and its performance characteristic determined by the Dermatopathology Laboratory at [facility], directed by Dr. Venkat Arita. These tests need not be, and therefore are not, approved by the [place] Food and Drug Administration. The tests are used for clinical purposes. Billing Codes Specimen Charges Stain Charges 81374 79988 1 1 1:34 PM CDT DERMATOPATHOLOGY LABORATORY Embedded Images 1:34 PM CDT DERMATOPATHOLOGY LABORATORY Pathology/Cytology TISSUE SPECIMEN FROM SKIN / Unknown 01/31/2024 3:33 AM CDT 02/04/2024 9:28 AM CDT Miscellaneous samples (specimen) TISSUE SPECIMEN FROM SKIN / Unknown 01/31/2024 3:33 AM CDT 02/04/2024 9:28 AM CDT us Raymundo Ramirez MD LAB - PATHOLOGY/CYTOLOGY MOLINA BREAUX Final Result DERMATOPATHOLOGY LABORATORY [facility] - Department of Dermatology [facility] Medicine [address] [place] [address], [address] [phone] documented in this encounter Visit Diagnoses Diagnosis Neoplasm of uncertain behavior of skin documented in this encounter
[2025-08-06 14:30] LABS: Hematocrit 41.2 % (42.0-52.0); Hemoglobin 13.3 g/dL (14.0-18.0); Immature Granulocyte Percent A 3.2 % (0-0.5); Lymphocytes Absolute Auto 2.04 K/mm3 (0.9-3.2); Mean Corpuscular HGB Conc 32.3 g/dl (32-36); Mean Corpuscular Hemoglobin 27.9 pg (26-34); Mean Corpuscular Volume 86.4 fl (80-100); Nucleated Red Blood Cells Absolute Auto 0.000 K/mm3 (0.0-0.012); Nucleated Red Blood Cells Perc 0.0 % (0.0-0.2); Platelet Count Result 381 k/mm3 (150-375); Red Blood Count 4.77 M/mm3 (4.6-6.20); White Blood Count 13.7 K/mm3 (4.5-10.0)
[2025-08-06 14:42] LABS: Anion Gap 9 mmol/L (4-12); Blood Urea Nitrogen 51 mg/dL (9-20); Calcium 8.5 mg/dL (8.4-10.2); Carbon Dioxide 24 mmol/L (22-30); Chloride 103 mmol/L (98-107); Estimated CRCL calculation 41 ml/min; Estimated Glomerular Filt Rate 53; Glucose 117 mg/dL (65-110); Potassium 4.0 mmol/L (3.4-5.0); Sodium 136 mmol/L (137-145)
--- NOTE | 2025-08-06 14:42 | P.HP_ITS ---
H&P: HPI History of Present Illness Date/Time: 08/06/25 14:42 Chief Complaint: Shortness of breath and chest pain Narrative: 74-year-old male who past medical history of asthma, cardiomyopathy s/p permanent pacemaker, CHF, COPD, hypertension presents to [facility] ED on 08/06/2025 with complaints of shortness of breath and chest pain. Patient states it has been intermittently happening since May but became worse over this past week. This morning the patient's symptoms were worse and he felt that his heart rate was elevated. No history of AFib or flutter. Patient had been at urgent care earlier this week and was prescribed a Z-Mariano and Tessalon Perles for a possible COPD exacerbation. He admits to intermittent coughing as well. Also endorses more than his usual leg swelling PMFSH Family History Family History (Updated 08/06/25 @ 15:37 by Rayna Devlin RN) Father Cerebrovascular accident Social History Social History Smoking status: Never smoker Alcohol intake: current Drinks per week: 1 Substance use: never Lack of Transportation: No Lack of Food: Never True Current Housing: I Have Housing Concerned About Future Housing: No Difficulty Paying Gas/Electric Bills: No Difficulty Paying for Meds: No Currently Unemployed: No Education: Don't Know Difficulty w/ Childcare or Family Care: No Spiritual care concerns: No Meds Home Medications and Allergies Home Medications ?Medication ?Instructions ?Recorded ?Confirmed ?Type albuterol 90 mcg-budesonide 80 2 inh inhalation .q4hr PRN 08/06/25 08/06/25 History mcg/actuation HFA aerosol inhaler shortness of breath or wheezing (Airsupra) albuterol sulfate 90 mcg/actuation 2 puff inhalation Q 6H PRN 08/06/25 08/06/25 History aerosol inhaler shortness of breath or wheez ing benzonatate 200 mg capsule 200 mg PO TID PRN cough 08/06/25 History fluticasone fur. 200 mcg-umeclid 1 inh inhalation Q24H 08/06/25 08/06/25 History 62.5 mcg-vilant 25 mcg inhalat.powder (Trelegy Ellipta) latanoprost 0.005 % eye drops 1 drp EACH EYE HS 08/06/25 History metoprolol succinate 25 mg 25 mg PO DAILY 08/06/25 History tablet,extended release 24 hr prednisone 20 mg tablet 20 mg PO DAILY PRN shortness of 08/06/25 08/06/25 History breath Allergies Allergy/AdvReac Type Severity Reaction Status Date / Time No Known Allergies Allergy Unverified 04/08/18 10:12 Vital Signs Vital Signs - 24 hr 08/06/25 14:01 Temperature 97.8 F Pulse Rate 73 Respiratory Rate 18 Blood Pressure 108/73 Pulse Oximetry 100 Exam Narrative: GENERAL: non-toxic appearing, in no acute distress. HEAD: Normocephalic, atraumatic. EYES: PERRLA. Conjunctivae clear. NOSE: Normal no drainage. THROAT: Pharynx clear, no exudate. NECK: Trachea midline. No adenopathy, no masses. RESPIRATORY: Airway patent, respirations nonlabored. CTA. CARDIOVASCULAR: Regular rate and rhythm without murmurs, rubs, or gallops. BREASTS: Defer GASTROINTESTINAL: Abdomen is soft and nontender. No organomegaly. Bowel sounds normal in all quadrants. GENITOURINARY: Defer MUSCULOSKELETAL: Moves all extremities. No gross deformities. Moves all extremities well. No calf tenderness. SKIN: Warm, dry, normal color. NEURO: A&O X4. Speech clear PSYCHIATRIC: Normal interaction H&P: Results Labs Labs: Short CBC 08/06/25 Range/Units 14:22 WBC 13.7 H (4.5-10.0) K/mm3 Hgb 13.3 L (14.0-18.0) g/dL Hct 41.2 L (42.0-52.0) % Plt Count 381 H (150-375) k/mm3 [facility] 08/06/25 14:22 Sodium 136 L Potassium 4.0 Chloride 103 Carbon Dioxide 24 BUN 51 H Creatinine 1.33 H Glucose 117 H Calcium 8.5 Assessment and Plan Assessment and plan (1) DVT (deep venous thrombosis): Qualifiers: DVT location: lower extremity Code(s): I82.409 - Acute embolism and thrombosis of unspecified deep veins of unspecified lower extremity Status: Acute Plan Diet: Heart healthy GI prophylaxis: NA DVT prophylaxis: heparin gtt lines/drains: PIV Fluids: Code status: Full
[2025-08-06 14:52] LABS: INR 1.3; Prothrombin Time 16.3 Seconds (11.1-14.7)
[2025-08-06 14:53] LABS: Partial Thromboplastin Time 47.5 Seconds (22.3-36.8)
[2025-08-06] MEDS: HEPARIN SOD/D5W 100 UNITS/ML 25,000 UNITS/250 ML BAG 11 UNITS IV CONT (15:17)
--- OUTSIDE RECORDS SUMMARY | 2025-08-06 15:38 | XMS_ITS | Encounter Summary ---
Author Organization [facility] Address [address] [facility] [place] [address] Care Team Providers Care Swing Saw Operator Name Role Phone Unavailable Primary Care Provider Unavailabl e Encounter Details Date Type Department Care Team (Late st Contact Info) Description 08/05/2024 Lab Requisition [facility] - DermPath Lab [address] [place] [phone] Chaya Ramirez APRN-CNP [facility] DERMATOLOGY [address] [place] [phone] Neoplasm of uncertain behavior of skin [...] AM CDT) Case Report Dermatopathology Report Case: [id number] Authorizing Provider: Chaya Ramirez, Collected: 08/05/2024 12:00 AM JOURNEYMAN POWERHOUSE OPERATOR-TRAIN CONTROLLER Ordering Location: [facility] - Received: 08/06/2024 12:49 PM [...] characteristic determined by the Dermatopathology Laboratory at [facility], directed by Dr. Venkat Arita. These tests need not be, and therefore are not, approved by the [place] Food and Drug Administration. The tests are used for clinical purposes. Billing Codes Specimen Charges Stain Charges 71557 1 2:21 PM CDT DERMATOPATHOLOGY LABORATORY Embedded Images 2:21 PM CDT DERMATOPATHOLOGY LABORATORY Pathology/Cytolog y TISSUE SPECIMEN FROM SKIN / Unknown 08/05/2024 08/06/2024 12:49 PM CDT us Chaya Ramirez JOURNEYMAN POWERHOUSE OPERATOR-TRAIN CONTROLLER LAB - PATHOLOGY/CY TOLOGY ORDERABLES Final Result DERMATOPATHOLOGY LABORATORY [facility] - Department of Dermatology [address] [place] [address], [facility] [phone] documented in this encounter Visit Diagnoses Diagnosis Neoplasm of uncertain behavior of skin documented in this encounter
--- OUTSIDE RECORDS SUMMARY | 2025-08-06 15:38 | XMS_ITS | Clinical Summary ---
Author Organization [facility] Address [address] [place] [address] Care Team Providers Care Night Auditor Name Role Phone Unavailable Primary Care Provider Unavailabl e Source Comments [facility] [employer],non-owned Affiliates and Associated Physician Practices is amultiple site organization consisting of ambulatory clinics and hospital sitesin [place], [place], [place] and [place]. This disclosure is being madepursuant to the Care Everywhere program and may not contain all information available regarding this patient. Last updated 18.[facility] [employer] Social History Tobacco Use Types Packs/Day Years [...] patient's age to complete this topic Insurance [facility] MEDICARE [employer] MED[employer]ARE [employer] MED[employer]ARE [employer] MEDICARE [employer] MEDICARE [employer] MEDICARE [employer] MEDICARE
--- OUTSIDE RECORDS SUMMARY | 2025-08-06 15:38 | XMS_ITS | Encounter Summary ---
Author Organization [facility] Address [address] [place] [address] Care Team Providers Care Doweling Machine Operator Name Role Phone Rigoberto Ruffin MD Primary Care Provider [phone] Bert Carreon MD Unavailable [phone] Unknown, Notinfile Unavailable Unavailable Sirisha Roberson MD Unavailable Spec, Tristan CREWS Unavailable Encounter Details Date Type Department Care Team (Late st Contact Info) Description 07/13/2025 Telephone [facility] Cardiology [address] [phone] Mirella Lin MA Social History [...] on file Legal Sex Male 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 CHARGER TESTER Gender Identity Male 07/19/2021 10:30 AM CDT Sexual Orientation Not on file documented as of this encounter Plan of Treatment Not on file documented as of this encounter Visit Diagnoses Not on filedocumented in this encounter Care Teams Doweling Machine Operator Relationship Specialty Start [place] [address] [place] [address] PCP - General Family Practice 07/17/23 [place] [address] [place] [address] Surgeon Cardiothoracic Surgery 08/29/24 Unknown, Notinfile 08/29/24 Sirisha Roberson MD [address] [facility] [address] [place] [address] Consulting Physician Cardiology 08/29/24 Tristan Queen MD [address] [facility] [address] [place] [address] Consulting Physician Infectious Diseases 08/29/24 documented as of this encounter
--- OUTSIDE RECORDS SUMMARY | 2025-08-06 15:38 | XMS_ITS | Encounter Summary ---
Author Organization [facility] Address [address] [facility] [address] [place] [address] Care Team Providers Care Gearcase Assembler Name Role Phone Rock Rasmussen MD Primary Care Provider Rock Rasmussen MD Primary Care Provider Rigoberto Ruffin MD Primary Care Provider [phone] Bert Carreon MD Unavailable [phone] Unknown, Notinfile Unavailable Unavailable Sirisha Roberson MD Unavailable [phone] Tristan Queen MD Unavailable Encounter Details Date Type Department Care Team (Late st Contact Info) Description 02/13/2017 Orders Only [facility] Provider, MD He [address] [place] [address] Social History Tobacco Use Types Packs/Day Years Used Date Smoking Tobacco: Former Alcohol Use Standard Drinks/Week Comments No 0 (1 standard drink = 0.6 oz pur e alcohol) Sex and Gender Information Value Date Recorded Sex Assigned at Not on file Legal 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 PRECINCT Gender Identity Male 07/19/2021 10:30 AM CDT [...] on filedocumented in this encounter Care Teams Gearcase Assembler Relationship Specialty Start [place] [address] [place] [address] PCP - General 01/30/17 10/17/17 [place] [address] [place] [address] PCP - General Internal Medicine 10/18/17 07/16/23 [place] [address] [place] [address] PCP - General Family Practice 07/17/23 [place] [address] [place] [address] Surgeon Cardiothoracic Surgery 08/29/24 Unknown, Notinfile 08/29/24 Sirisha Roberson MD [address] [facility] [address] [place] [address] Consulting Physician Cardiology 08/29/24 Tristan Queen MD [address] [facility] [address] [place] [address] Consulting Physician Infectious Diseases 08/29/24 documented as of this encounter
--- OUTSIDE RECORDS SUMMARY | 2025-08-06 15:38 | XMS_ITS | Clinical Summary ---
Author Organization [facility] [place] [address] Address [address] [place] [address] Care Team Providers Care Philosophy Faculty Member Name Role Phone Rigoberto Ruffin MD Primary Care Provider [phone] Bert Carreon MD Unavailable [phone] Unknown, Notinfile Unavailable Unavailable Sirisha Roberson MD Unavailable [phone] Tristan Queen MD Unavailable Allergies No [...] 09/17/2024 Assessment & Plan (11/17/2024 2:40 PM TUBE BENDER HAND): Blood cultures NG, TTE with no e/o [...] 01/10/25) - repeat ECG today due to snf QT prolonging medication. Qtc = 425 - [...] 08/15/2024 Assessment & Plan (09/17/2024 10:46 AM TUBE BENDER HAND): Blood cultures NG, TTE with no e/o [...] 08/13/2024 Assessment & Plan (08/26/2024 12:40 PM TUBE BENDER HAND): -Continue home Trelegy MDI 1 puff, daily -Monitor O2 Sats, on RA -Continue PRN Albuterol -Follows with outpatient pulmonology Assessment & Plan (08/25/2024 12:25 PM TUBE BENDER HAND): -Continue home Trelegy daily -Monitor O2 Sats, on RA -Continue PRN Albuterol -Follows with outpatient pulmonology Assessment & Plan (08/24/2024 12:11 PM TUBE BENDER HAND): -Continue home Trelegy daily -Monitor O2 Sats, on RA -Continue PRN Albuterol -Follows with outpatient pulmonology Assessment & Plan (08/22/2024 1:41 PM TUBE BENDER HAND): -Continue home Trelegy daily -Monitor O2 Sats, on RA -Continue PRN Albuterol -Follows with outpatient pulmonology Assessment & Plan (08/20/2024 10:59 AM TUBE BENDER HAND): -Continue home Trelegy daily -Monitor O2 Sats, on RA -Continue PRN Albuterol -Follows with outpatient pulmonology Assessment & Plan (08/17/2024 12:23 PM TUBE BENDER HAND): -Continue home Trelegy daily -Monitor O2 Sats, on RA -Continue PRN Albuterol -Follows with outpatient pulmonology Assessment & Plan (08/16/2024 12:29 PM TUBE BENDER HAND): -Continue home Trelegy daily -Monitor O2 Sats, on RA -Continue PRN Albuterol -Follows with outpatient pulmonology Assessment & Plan (08/13/2024 4:06 PM TUBE BENDER HAND): -Continue home Trelegy daily -Monitor O2 Sats, on RA -Continue PRN Albuterol -Follows with outpatient pulmonology History of sick sinus syndrome 08/13/2024 Assessment & Plan (08/28/2024 12:28 PM TUBE BENDER HAND): -[employer] dual-chamber PPM placed in 2018 for SSS -device extracted 08/20 -Monitor telemetry, NSR -EP to re-implant device today (following 24 hrs of Micafungin) Assessment & Plan (08/25/2024 12:25 PM TUBE BENDER HAND): -[employer] dual-chamber PPM placed in 2018 for SSS -device extracted 08/20 -Monitor telemetry, NSR -EP to re-implant device on 08/25 Assessment & Plan (08/24/2024 12:10 PM TUBE BENDER HAND): -[employer] dual-chamber PPM placed in 2018 for SSS -device extracted 08/20 -Monitor telemetry, NSR -EP to re-implant device on 08/25 Assessment & Plan (08/22/2024 1:41 PM TUBE BENDER HAND): -[employer] dual-chamber PPM placed in 2018 for SSS -device extracted 08/20 -Monitor telemetry, NSR -EP to re-implant device on 08/25 Assessment & Plan (08/20/2024 10:59 AM TUBE BENDER HAND): -[employer] dual-chamber PPM placed in 2018 -Monitor telemetry, A-paced 70 -PPM interrogation on 08/13 Assessment & Plan (08/17/2024 12:23 PM TUBE BENDER HAND): -[employer]os dual-chamber PPM placed in 2018 -Monitor telemetry, A-paced 70 -PPM interrogation on 08/13 Assessment & Plan (08/16/2024 12:29 PM TUBE BENDER HAND): -[employer] Tacos dual-chamber PPM placed in 2018 -Monitor telemetry, A-paced 70 -PPM interrogation on 08/13 Assessment & Plan (08/14/2024 1:06 PM TUBE BENDER HAND): -[employer] Tacos dual-chamber PPM placed in 2018 -Monitor telemetry, A-paced 70 -PPM interrogation on 08/13 Hypertension 08/13/2024 Assessment & Plan (08/26/2024 12:39 PM TUBE BENDER HAND): -Monitor VS q4h -Continue Metoprolol-titrate dose to response -Encourage low sodium diet Assessment & Plan (08/25/2024 12:24 PM TUBE BENDER HAND): -Monitor VS -Continue Metoprolol-titrate dose to response -Encourage low sodium diet Assessment & Plan (08/24/2024 12:10 PM TUBE BENDER HAND): -Monitor VS -Continue Metoprolol-titrate dose to response -Encourage low sodium diet Assessment & Plan (08/22/2024 1:39 PM TUBE BENDER HAND): -Monitor VS -Continue Metoprolol-titrate dose to response -Encourage low sodium diet Assessment & Plan (08/20/2024 10:59 AM TUBE BENDER HAND): -Monitor VS -Continue Metoprolol -Encourage low sodium diet Assessment & Plan (08/18/2024 2:05 PM TUBE BENDER HAND): -Monitor VS -Continue Metoprolol -Encourage low sodium diet Assessment & Plan (08/17/2024 12:22 PM TUBE BENDER HAND): -Monitor VS -Continue Metoprolol -Encourage low sodium diet Assessment & Plan (08/16/2024 12:29 PM TUBE BENDER HAND): -Monitor VS -Continue Metoprolol -Encourage low sodium diet Assessment & Plan (08/13/2024 4:11 PM TUBE BENDER HAND): -Monitor VS -Continue Metoprolol -Encourage low sodium diet Pacemaker complications 08/12/2024 Assessment & Plan (08/28/2024 12:49 PM TUBE BENDER HAND): -Original implant of dual-chamber in 2017 -S/P [...] today Assessment & Plan (08/25/2024 12:27 PM TUBE BENDER HAND): -Original implant of dual-chamber in 2017 -S/P [...] abx) Assessment & Plan (08/24/2024 12:10 PM TUBE BENDER HAND): -Original implant of dual-chamber in 2018 -S/P [...] 08/26 Assessment & Plan (08/22/2024 1:39 PM TUBE BENDER HAND): -Original implant of dual-chamber in 2017 -S/P [...] 08/25 Assessment & Plan (08/27/2024 1:44 PM TUBE BENDER HAND): Patient is a 73 y.o. man with [...] out. Assessment & Plan (08/20/2024 10:59 AM TUBE BENDER HAND): -Original implant of dual-chamber in 2017 -S/P [...] plan Assessment & Plan (08/18/2024 1:14 PM TUBE BENDER HAND): -Original implant of dual-chamber in 2017 -S/P [...] Sunday Assessment & Plan (08/17/2024 12:22 PM TUBE BENDER HAND): -Original implant of dual-chamber in 2017 -S/P [...] [place] Assessment & Plan (08/16/2024 12:29 PM TUBE BENDER HAND): -Original implant of dual-chamber in 2017 -S/P [...] Sunday Assessment & Plan (08/15/2024 12:48 PM TUBE BENDER HAND): -Original implant of dual-chamber in 2017 -S/P [...] SSS. DOI 08/28/2024-Karol Castillo. Ride side implant. [facility]. Sinoatrial node dysfunction 04/04/2018 Cardiomyopathy, idiopathic 10/18/2017 Cardiomegaly 10/13/2015 Chronic obstructive pulmonary disease 10/13/2015 Glaucoma 10/13/2015 Hypertension 10/13/2015 Encounters Date Type Department Care Team Description 07/30/2025 Telephone [facility] Cardiology [address] [facility] [address] [place] [phone] Radha Wade MA Clearance Faxed 07/17/2025 7:00 AM CDT Ancillary Procedure [facility] Cardiology [address] [place] [address] [place] [phone] Sinoatrial node dysfunction (HCC); Cardiac pacemaker in situ 07/14/2025 1:45 PM CDT Office Visit [facility] Cardiology [address] [place] [address] [place] [address] [place] [address] Harlan David MD Sinoatrial node dysfunction (HCC) (Primary Dx); Cardiac pacemaker in situ 07/13/2025 Telephone [facility] Cardiology [address] [place] [address] [place], [place] [address] [place] [address] Mirella Main MA 07/09/2025 Telephone [facility] Cardiology [address] [place] [address] [place] [address] [address] Harlan David MD 07/07/2025 9:45 AM CDT Ancillary Procedure [facility]iology [address] [place] [address] [place], [place] [address], [place] [phone] Sinoatrial node dysfunction (HCC); Cardiac pacemaker in situ 05/12/2025 8:45 AM CDT Ancillary Procedure [facility]iology [address] [place] [address] [place] [phone] Cardiac pacemaker in situ (Primary Dx); Sick sinus syndrome (HCC); Cardiomyopathy, idiopathic (HCC) 05/12/2025 Orders Only [facility] Cardiology [address] [place] [address] [address] [facility] [place] [address] Harlan David MD Sinoatrial node dysfunction (HCC) [...] on file Legal Sex Male 3:25 PM TUBE BENDER HAND Gender Identity Male 07/19/2021 10:30 AM CDT Sexual Orientation Not on file Obstetrics History Last Filed Vital Signs Vital Sign Reading Time Taken Comments Blood Pressure 90/60 07/14/2025 1:16 PM CDT Pulse 90 07/14/2025 1:16 PM CDT Temperature 36.5 C (97.7 F) 11/17/2024 12:41 PM TUBE BENDER HAND Respiratory Rate 14 07/14/2025 1:16 PM CDT [...] 07/17/2019, 03/2016 Medical Devices Implanted Type Area Resident Care Spec Device Identifier Shelf Expiration Date Model / Serial / Lot Victor Vascular Active Fixation Steroid Eluting Latex Free Sterile Right Atrium Ventricle Ultipace 52cm [id number]/52 - [id number] - [id number] Implanted:Qty: 1 on 08/28/2024 by Sirisha Roberson MD at [facility] Lead Right: Atria Victor Vascular 07/07/2027 [id number]/ 52 / [id number] / [id number] Victor Vascular Active Fixation Steroid Eluting Latex Free Sterile Right Atrium Ventricle Ultipace 58cm [id number]/58 - [id number] - [id number] Implanted:Qty: 1 on 08/28/2024 by Sirisha Roberson MD at [facility] Lead Right: Ventricle Victor V[employer] 07/07/2027 [id number]/ 58 / [id number] / [id number] Medtronic Inc Tyrx Absorbable Antibacterial Envelope Large 3.3x2.9in [id number] - [id number] - [id number] Implanted:Qty: 1 on 08/28/2024 by Sirisha Roberson MD at [facility] Other - see comments Right: Chest Wall Medtronic Inc 06/11/2025 [id number] / [id number] / [id number] Description:Antibacterial en velope Pacemaker-04/08/20 18 Implanted:2017 by Harlan David MD (Quantity not on file) Pacemaker Chest [employer] Medical Sinus Node Dysfunction [employer] Medical Sc Inc Assurity Mri [id number] 2 Chamber Is-1 Connector Thk6mm Pacemaker [id number] - [id number] - [id number] Implanted:Qty: 1 on 08/28/2024 by Sirisha Roberson MD at [facility] Pacemaker Right: Chest Wall [employer] Medical Sc Inc 01/05/2026 [id number] / [id number] / [id number] Medtronic Inc Tyrx Absorbable Antibacterial Envelope-Med 2.7x2.5in [id number] - [id number] Implanted:Qty: 1 on 04/18/2024 by Fredy Tobias MD at [facility] Medtronic [facility] 01/19/2025 [id number] / / [id number] Procedures Procedure Name Priority Date/Time Associated Diagnosis [...] Modality Other Narrative 07/27/2025 7:18 AM CDT Victro Assurity Dual Pacemaker. Dx; SSS. DOI 08/28/2024-Karol Castillo. Ride side implant. Benito remote. Unscheduled DDD Pacemaker Remote due to increased AFib burden Transmission attached. Battery status: 2.99 V , 9.8-10.8 years remaining battery life to TREY. Stable lead impedances, pacing and sensing thresholds. Presenting rhythm: /VS AP-1.2%, SHIRT OPERATOR-< 1% 7 AT/AF episodes noted, longest episode was 19 hours in duration, IEGM demonstrates AFib. AF Mayaguez 2.8%. Reported AFib burden on 07/09/25 was < 1%. No Ventricular high rate episodes detected. Medications: Toprol XL. See scanned report. Office pacemaker follow up: due in 6 months. Valier remote f/u 08/11/2025. Meet Gutierres, TOSIN us [...] , 10.0 years remaining battery life to TRYE. Stable lead impedances, pacing and sensing thresholds. Presenting rhythm: -VS. AP-1.2%, SHIRT OPERATOR-<1%. 2 AT/AF episodes noted, longest episode was 9.0 hours in duration on 07/06/2025, IEGM demonstrates Afib/Aflutter. AF Mayaguez <1%. No Ventricular high rate episodes detected. Medications: Toprol XL. See scanned report. Office pacemaker follow up: due in 6 months. Valier remote f/u 08/11/2025. Martha Pina RN Harlan David MD [facility] PROC EDURES Final Result * DEVICE CHECK - REMOTE (05/12/2025 10:03 AM CDT) Anatomical Region Laterality Modality Other Narrative 06/12/2025 12:[address] [employer] Dual pacemaker. Dx; Sinus Node Dysfunction. DOI 04/08/2018. Valier remote monitoring Q3 mo, office pacer checks Q1 yr. Battery Advisory. Routine DDD Pacemaker Remote. Transmission attached. Battery status: 2.99 V , 10.2-11.3 years remaining battery life to TREY. Stable lead impedances, pacing and sensing thresholds. Presenting rhythm: /VS AP-2.6%, SHIRT OPERATOR-< 1% 1 AT/AF episodes noted, longest episode was 10 seconds in duration, IEGM demonstrates SVT. AF Mayaguez < 1%. No Ventricular high rate episodes detected. Medications: Toprol-XL 25 mg See scanned report. Office pacemaker follow up: 6 months Valier remote f/u 08/11/25. Meet Gutierres RN Harlan David MD [facility] PROC EDURES Final Result from Last 3 Months Insurance [facility] [place] [id number] Advance Directives For more information, please contact: [phone] * Full Code (Latest Code Status on File) Date Activated Date Inactivated Comments 08/12/2024 6:49 PM 08/29/2024 5:44 PM Care Teams Philosophy Faculty Member Relationship Specialty Start [place] [address] [place] [address] PCP - General Family Practice 07/17/23 [place] [address] [place] [address] Surgeon Cardiothoracic Surgery 08/29/24 Unknown, Notinfile 08/29/24 Sirisha Robesron MD [address] [facility] [address] [place] [address] Consulting Physician Cardiology 08/29/24 Tristan Queen MD [address] [facility] [address] [place] [address] Consulting Physician Infectious Diseases 08/29/24
--- OUTSIDE RECORDS SUMMARY | 2025-08-06 15:38 | XMS_ITS | Encounter Summary ---
Author Organization [facility] Address [address] [place] [address] Care Team Providers Care Hand Stapler Name Role Phone Unavailable Primary Care Provider Unavailabl e Encounter Details Date Type Department Care Team (Late st Contact Info) Description 01/31/2024 Lab Requisition [facility] - DermPath Lab [address] [place] [phone] Raymundo Ramirez MD [facility] DERMATOLOGY [address] [place] [phone] Neoplasm of uncertain behavior of skin [...] AM CDT) Case Report Dermatopathology Report Case: [id number] Authorizing Provider: Raymundo Ramirez MD Collected: 01/31/2024 03:33 AM Ordering Location: [facility] Physician [facility] - Received: 02/04/2024 09:28 AM DermPath [...] specimen consists of a shave biopsy measuring [id number] mm. Jar 0. 1:34 PM CDT DERMATOPATHOLOGY [...] characteristic determined by the Dermatopathology Laboratory at [facility], directed by Dr. Venkat Arita. These tests need not be, and therefore are not, approved by the [place] Food and Drug Administration. The tests are used for clinical purposes. Billing Codes Specimen Charges Stain Charges 67659 [id number] 1 1 1:34 PM CDT DERMATOPATHOLOGY LABORATORY Embedded Images 1:34 PM CDT DERMATOPATHOLOGY LABORATORY Pathology/Cytology TISSUE SPECIMEN FROM SKIN / Unknown 01/31/2024 3:33 AM CDT 02/04/2024 9:28 AM CDT Miscellaneous samples (specimen) TISSUE SPECIMEN FROM SKIN / Unknown 01/31/2024 3:33 AM CDT 02/04/2024 9:28 AM CDT us Raymundo Ramirez MD LAB - PATHOLOGY/CYTOLOGY MOLINA BREAUX Final Result DERMATOPATHOLOGY LABORATORY [facility] - Department of Dermatology [facility] Medicine [address] [place] [address], [address] [phone] documented in this encounter Visit Diagnoses Diagnosis Neoplasm of uncertain behavior of skin documented in this encounter
[2025-08-06 17:57] LABS: Troponin I 0.591 ng/mL (0.000-0.034)
[2025-08-06 21:33] LABS: Partial Thromboplastin Time 88.1 Seconds (22.3-36.8)
[2025-08-06] MEDS: LATANOPROST 0.005% OP SOLN 2.5 ML BTL 1 DROP EACH EYE (21:43)
[2025-08-07] VITALS (26 sets, daily range): BP systolic 90–112; BP diastolic 56–81; PULSE 99–135; RESP 14–28; TEMP 35.7–36.8; O2SAT 91–100
--- NOTE | 2025-08-07 | ECHO_ITS ---
Patient Info Name: Robert Wilson Age: 74 years : 1950 Gender: Male Ht: 68 in Wt: 145 lbs BSA: 1.78 m2 HR: 96 bpm BP: 107 / 78 mmHg Heart Rhythm: Atrial Fibrillation Technical Quality: Fair Exam Date: 08/07/2025 10:30 AM Patient Status: I Admit Date: 08/06/2025 Exam Type: CA echo dop color flow w con Complete two-dimensional, color flow and Doppler transthoracic echocardiogram is performed with contrast to opacify the left ventricle and to improve the deliniation of the left ventricle endocardial borders. Staff Referring Physician: Jenny Goins [employer] Architect: Jenn Dee Attending Provider: Elio Vasquez MD Contrast/Agitated Saline Contrast/Ag. Saline: Definity Amount: 2.00 ml Summary 1. Moderate left ventricular enlargement with severe global systolic dysfunction visually estimated ejection fraction 20%. 2. Definity contrast utilized to improve visualization. 3. Pacemaker lead noted. 4. Moderate mitral regurgitation resulting from mitral valve annular dilation. 5. Atrial fibrillation. Left Ventricle Left ventricular chamber dimension is moderately enlarged. Left ventricular systolic function is severely reduced, estimated at 20-25. The left ventricular diastolic function is indeterminate. Right Ventricle Right ventricular chamber dimension is normal. Linear artifact in right ventricle suggestive of catheter(s), pacemaker lead(s), or ICD lead(s). Left Atria Left atrial chamber dimension is severely enlarged. Right Atria Right atrial chamber dimension is moderately enlarged. Aortic Valve The aortic valve is normal. Pulmonic Valve The pulmonic valve is normal. Mitral Valve The mitral valve has normal leaflets. There is moderate mitral valve regurgitation. Tricuspid Valve The tricuspid valve leaflets are normal. There is mild tricuspid valve regurgitation. Pericardium/Pleural The pericardium appears normal. Aorta The aortic root size at the sinus of Valsalva is normal. Left Ventricular Outflow Tract Name Value Normal LVOT 2D LVOT Diameter 2.0 cm LVOT Doppler LVOT Peak Velocity 79 cm/s LVOT Peak Gradient 3 mmHg LVOT Mean Gradient 2 mmHg LVOT VTI 13 cm LVOT Stroke Volume 41 ml LVOT CO 3.9 l/min LVOT CI 2.2 l/min/m2 Pulmonic Valve Name Value Normal RVOT Doppler RVOT Peak Velocity 47 cm/s RVOT Peak Gradient 1 mmHg PV Doppler PV Peak Velocity 67 cm/s PV Peak Gradient 2 mmHg Mitral Valve Name Value Normal MV Diastolic Function MV E Peak Velocity 86 cm/s MV A Peak Velocity 29 cm/s MV E/A 3.0 MV Decel Time (PW) 82 ms MV Annular TDI MV E/e' (Septal) 20.6 MV E/e' (Lateral) 12.7 MV E/e' (Average) 16.7 Tricuspid Valve Name Value Normal TV Regurgitation Doppler TR Peak Velocity 344 cm/s TR Peak Gradient 47 mmHg Aortic Valve Name Value Normal AV Doppler AV Peak Velocity 92 cm/s AV Peak Gradient 3 mmHg AV Area (Cont Eq Chase) 2.8 cm2 AV DI (Chase) 0.86 AV Regurgitation 2D LVOT Area 3.2 cm2 Ventricles Name Value Normal LV Dimensions 2D/MM IVS Diastolic Thickness (2D) 0.9 cm 0.6-1.0 LVID Diastole (2D) 5.7 cm 4.2-5.8 LVIW Diastolic Thickness (2D) 0.8 cm 0.6-1.0 LVID Systole (2D) 5.6 cm 2.5-4.0 LVOT Diameter 2.0 cm LV Mass (2D Cubed) 188.88 g 88.00-224.00 LV Mass Index (2D Cubed) 106 g/m2 49-115 Relative Wall Thickness (2D) 0.30 <=0.42 LV Fractional Shortening/Ejection Fraction 2D/MM LV Fractional Shortening (2D) 2 % 25-43 LV EF (2D Teichholz) 4 % LV Diastolic Volume (4C MOD) 124 ml LV EF (4C MOD) 20 % LV Diastolic Volume (2C MOD) 212 ml LV EF (2C MOD) 7 % LV Diastolic Volume (BP MOD) 167 ml 62-150 LV Diastolic Volume Index (BP MOD) 94 ml/m2 34-74 LV Systolic Volume (BP MOD) 147 ml 21-61 LV Systolic Volume Index (BP MOD) 82 ml/m2 11-31 LV EF (BP MOD) 12 % 52-72 LV Diastolic Length (4C) 8.3 cm LV Systolic Length (4C) 8.0 cm LV Stroke Volume (4C MOD) 25 ml Atria Name Value Normal LA Dimensions LA Volume (4C A-L) 80 ml LA Volume (BP A-L) 86 ml RA Dimensions RA Systolic Major Borger Length (4C) 5.6 cm 2.1-2.7 RA Area (4C) 19.8 cm2 <=18.0 Report Signatures
[2025-08-07] MEDS: METOPROLOL TARTRATE INJ 5 MG/5 ML VIAL IV PUSH (00:25)
--- NOTE | 2025-08-07 01:08 | ECG_ITS ---
Test Date: 2025-08-07 01:23:36 Measurements Intervals Reddick Rate: 108 P: 0 MO: 0 QRS: -41 QRSD: 120 T: 136 QT: 369 QTc: 495 Interpretive Statements ATRIAL FLUTTER/TACHYCARDIA WITH RAPID VENTRICULAR RESPONSE INFERIOR INFARCT, AGE INDETERMINATE ANTEROSEPTAL INFARCT, AGE INDETERMINATE ST-T WAVE ABNORMALITY IN HIGH LATERAL LEADS- CONSIDER ISCHEMIA ABNORMAL ECG No previous ECG available for comparison Electronically Signed On 08-07-2025 06:09:39 CDT by Sergo Pinzon D.O.
--- NOTE | 2025-08-07 03:40 | PC.NURSE ---
Patient was found to have turned his bed alarm off on his own. Went to check on the patient d/t heart rate being elevated more than usual, and patient was in the bathroom. He stated he turned the bed alarm off himself. Patient was walked back to bed and was advised to leave his bed alarm on for his safety. Patient is alert and oriented. Patient verbalized understanding.
[2025-08-07] MEDS: AZITHROMYCIN IV 500 MG in SODIUM CHLORIDE 0.9% IV 250 ML IVPB (03:45)
[2025-08-07] MEDS: cefTRIAXone 1 GM in SODIUM CHLORIDE 0.9% IV 50 ML 100 ML IVPB (04:04)
[2025-08-07 04:19] LABS: Hematocrit 45.8 % (42.0-52.0); Hemoglobin 13.6 g/dL (14.0-18.0); Immature Granulocyte Percent A 2.4 % (0-0.5); Lymphocytes Absolute Auto 2.19 K/mm3 (0.9-3.2); Mean Corpuscular HGB Conc 29.7 g/dl (32-36); Mean Corpuscular Hemoglobin 28.3 pg (26-34); Mean Corpuscular Volume 95.2 fl (80-100); Nucleated Red Blood Cells Absolute Auto 0.000 K/mm3 (0.0-0.012); Nucleated Red Blood Cells Perc 0.0 % (0.0-0.2); Platelet Count Result 299 k/mm3 (150-375); Red Blood Count 4.81 M/mm3 (4.6-6.20); White Blood Count 11.9 K/mm3 (4.5-10.0)
[2025-08-07 04:35] LABS: Hypochromasia 1+; Schistocytes None Seen
[2025-08-07 04:46] LABS: Partial Thromboplastin Time > 200.0 Seconds (22.3-36.8)
[2025-08-07] MEDS: diazePAM INJ (*CRX) 10 MG/2 ML SYRINGE 5 MG IV PUSH (05:27)
[2025-08-07 05:54] LABS: Alveolar/Arterial O2 Gradient 53.1 mmHg; Carboxyhemoglobin 0.2 % THb (0-2.0); Fractional Inspired Oxygen 30 %; HCO3 ABG 17.4 mEq/l (22.0-26.0); Methemoglobin ABG 0.3 %THb (0-1.5); Oxygen Content ABG 20.3 %vol (16.0-22.0); Oxygen Saturation ABG 98.8 % (95.0-100.0); PCO2 ABG 24.8 mmHg (35.0-45.0); PO2 ABG 131.7 mmHg (80.0-100.0); PO2 FiO2 Ratio Arterial Blood 4.39 %; Reduced Hemoglobin 1.3 %THb (0-5.0); Site Drawn RIGHT BRACHIAL
[2025-08-07 05:55] LABS: Non-Invasive Expiratory Pressure 6 CMH2O; Non-Invasive Inspiratory Pressure 12 CMH2O; Non-Invasive Vent Rate 10 /MIN
[2025-08-07 07:35] LABS: Alanine Aminotransferase 103 U/L (6-50); Albumin Level 3.2 g/dL (3.5-5.1); Alkaline Phosphatase 101 U/L (38-126); Anion Gap 8 mmol/L (4-12); Aspartate Amino Transferase 73 U/L (17-59); Bilirubin,Total 0.6 mg/dL (0.2-1.3); Blood Urea Nitrogen 50 mg/dL (9-20); Calcium 8.3 mg/dL (8.4-10.2); Carbon Dioxide 26 mmol/L (22-30); Chloride 101 mmol/L (98-107); Estimated CRCL calculation 39 ml/min; Estimated Glomerular Filt Rate 48; Glucose 137 mg/dL (65-110); Potassium 4.2 mmol/L (3.4-5.0); Sodium 135 mmol/L (137-145); Total Protein 5.8 g/dL (6.3-8.2)
--- NOTE | 2025-08-07 08:35 | P.CONCA_ITS ---
Assessment and Plan Assessment and plan (1) Shortness of breath: Code(s): R06.02 - Shortness of breath Status: Acute Assessment and Plan: * most likely multifactorial in setting of atrial flutter and pneumonia secondary to flu A and B * His pBNP was elevated at OSH at 18,775 and CXR did demonstrate some interstitial edema and he was given IV lasix 40 mg at OSH * Also, noted to have elevated D-dimer and V/Q scan is pending to evaluate for PE * placed on Bipap for sleep and O2 2L NC during the day with O2 saturation or 98% * Appears better compensated this am and can use IV diuresis as needed * continue nebs and antibiotics * echo pending to look for any new or worsening LV dysfunction or wall motion abnormality (2) Pneumonia: Code(s): J18.9 - Pneumonia, unspecified organism Status: Acute Assessment and Plan: * nebs and antibiotics as per primary team * this is in the setting of flu A and fu B (3) Elevated troponin: Code(s): R79.89 - Other specified abnormal findings of blood chemistry Status: Acute Assessment and Plan: * patient found to have elevated troponin at OSH * repeat troponin here of 0.591, will repeat to determine trend * EKG is with no acute ST/T wave changes * most likely this elevation represents demand ischemia in setting of atrial flutter, dilated CMP and pneumonia * echo pending to look for any LV dysfunction or wall motion abnormality * at this time no plan for any invasive w/u * continue home Metoprolol as BP tolerates. (4) Cardiomyopathy: Code(s): I42.9 - Cardiomyopathy, unspecified Status: Acute Assessment and Plan: * reported as NICMP per office records * last EF last year noted to be 40% * He is s/p IV lasix and appers better compensated * repeat echo is pending * continue Metoprolol. Can add GDMT with ARB/ARNI and SGLT-2 as BP and renal function tolerates (5) Atrial flutter: Code(s): I48.92 - Unspecified atrial flutter Status: Acute Assessment and Plan: * noted to be in atrial flutter with RVR on admission, had brief atrial fibrillation on last remote device check of his Abbot dual chamber PPM * at that time patient elected against anticoagulation * patient rate remains in low 100s and his BP is soft * have discussed with Dr. Welch and will begin patient on IV amiodarone in hopes of conversion to a NSR * patient currently anticoagulated with heparin and can consider Eliquis or xarelto at dc * potassium wnl. Will check Magnesium and TSH * His LFts are mildly elevated and will need to monitor with amiodarone. (6) DVT (deep venous thrombosis): Qualifiers: DVT location: lower extremity Chronicity: acute Code(s): I82.409 - Acute embolism and thrombosis of unspecified deep veins of unspecified lower extremity Status: Acute Assessment and Plan: * noted to have an elevated D-dimer on admission * admits to lack of mobiity in setting of recent illness * his venous doppler revealed bilateral DVT * started on IV heparin * can convert to oral at dc Plan * await V/Q * continue AC with IV heparin in setting of atrial flutter and DVT * will begin IV amiodarone for atrial flutter-monitor LFTs closely * echo has been ordered History of Present Illness History of Present Illness Consult date/time: 08/07/25 08:35 Requesting physician: Jenny Goins APRN Consult reason: shortness of breath Reason For Visit: Dyspnea Narrative: Robert Wilson is a 74 y.o. male with a PMH of NICMP, SSS, and COPD who presented to an outside hospital yesterday with c/o shortness of breath. According to his who is at the bedside, patient had been feeling unwell for about a week. He was noted to be fatigued and increasing short of breath with activity such as climbing the stairs he had done very little at home. The shortness of breath persisted despite being prescribed azithromycin at urgent care so they came to the ER. In the ER patient was noted to have atrial flutter with RVR rate in the 150s and was given IV cardizem with better rate control. He was also, found to have influenza A and B. He had elevated d-dimer and troponin as well. He was started on heparin drip and transferred to [place] for further evaluation and management. This am he reports shortness of breath improved. No chest pain or pressure. No palpitations. Does note some RLE edema. Review of Systems 2 Review of Systems: All systems reviewed & are unremarkable except as noted in HPI and below [facility] Family History Family History (Updated 08/06/25 @ 15:37 by Rayna Devlin RN) Father Cerebrovascular accident Social History Social History Smoking status: Never smoker Alcohol intake: current Drinks per week: 1 Substance use: never Lack of Transportation: No Lack of Food: Never True Current Housing: I Have Housing Concerned About Future Housing: No Difficulty Paying Gas/Electric Bills: No Difficulty Paying for Meds: No Currently Unemployed: No Education: Don't Know Difficulty w/ Childcare or Family Care: No Spiritual care concerns: No Meds Home Medications and Allergies Home Medications ?Medication ?Instructions ?Recorded ?Confirmed ?Type albuterol 90 mcg-budesonide 80 2 inh inhalation .q4hr PRN 08/06/25 08/06/25 History mcg/actuation HFA aerosol inhaler shortness of breath or wheezing (Airsupra) albuterol sulfate 90 mcg/actuation 2 puff inhalation Q 6H PRN 08/06/25 08/06/25 History aerosol inhaler shortness of breath or wheez ing benzonatate 200 mg capsule 200 mg PO TID PRN cough 08/06/25 History fluticasone fur. 200 mcg-umeclid 1 inh inhalation Q24H 08/06/25 08/06/25 History 62.5 mcg-vilant 25 mcg inhalat.powder (Trelegy Ellipta) latanoprost 0.005 % eye drops 1 drp EACH EYE HS 08/06/25 History metoprolol succinate 25 mg 25 mg PO DAILY 08/06/25 History tablet,extended release 24 hr prednisone 20 mg tablet 20 mg PO DAILY PRN shortness of 08/06/25 08/06/25 History breath Allergies Allergy/AdvReac Type Severity Reaction Status Date / Time No Known Allergies Allergy Unverified 04/08/18 10:12 Vital Signs Vital Signs - 24 hr 08/06/25 14:00 08/06/25 14:01 08/06/25 15:52 Temperature 36.6 C 36.4 C L Pulse Rate 99 73 101 H Respiratory Rate 18 24 H Blood Pressure 108/73 111/65 Pulse Oximetry 100 96 Oxygen Delivery 08/06/25 16:00 08/06/25 16:00 08/06/25 18:00 Temperature Pulse Rate 103 H 107 H Respiratory Rate Blood Pressure Pulse Oximetry Oxygen Delivery Room Air 08/06/25 20:00 08/06/25 20:00 08/06/25 20:00 Temperature 36.6 C Pulse Rate 118 H 119 H Respiratory Rate 22 H Blood Pressure 109/73 Pulse Oximetry 96 Oxygen Delivery Room Air 08/06/25 23:54 08/07/25 00:00 08/07/25 00:00 Temperature 36.6 C Pulse Rate 118 H 133 H Respiratory Rate 22 H Blood Pressure 123/79 Pulse Oximetry 98 Oxygen Delivery Room Air 08/07/25 00:25 08/07/25 02:00 08/07/25 04:00 Temperature 36.6 C Pulse Rate 135 H 110 H 116 H Respiratory Rate 22 H Blood Pressure 107/78 Pulse Oximetry 99 Oxygen Delivery 08/07/25 04:00 08/07/25 04:00 08/07/25 05:30 Temperature Pulse Rate 117 H 135 H Respiratory Rate 28 H Blood Pressure Pulse Oximetry 98 Oxygen Delivery Room Air BiPAP 08/07/25 05:52 08/07/25 07:54 Temperature 35.7 C L Pulse Rate 107 H 99 Respiratory Rate 24 H Blood Pressure 94/66 L Pulse Oximetry 100 Oxygen Delivery Exam 2 Const: General: comfortable and no acute distress Eyes: Sclera: sclerae normal Neck: Neck: supple and No no JVD Resp: Effort & Inspection: normal respiratory effort Auscultation: d iminished lung sounds Cardio: Rate: tachycardic Rhythm: abnormal rhythm Heart sounds: no gallops, no murmurs and no rubs Skin: General skin exam: normal color and no erythema Neuro: Speech: normal speech Extrem: General: edema (RLE ) Psych: Affect: Anxious affect present Results Labs and Meds 08/07/25 04:13 08/07/25 06:34 Lab results: Cardiac Enzymes 08/06/25 08/07/25 Range/Units 17:18 06:34 AST 73 H (17-59) U/L Troponin I 0.591 H* (0.000-0.034) ng/mL Coagulation 08/06/25 08/06/25 08/07/25 Range/Units 14:29 21:13 04:13 PT 16.3 H (11.1-14.7) Seconds APTT 47.5 H 88.1 H > 200.0 H* (22.3-36.8) Seconds CBC 08/06/25 08/07/25 Range/Units 14:22 04:13 WBC 13.7 H 11.9 H (4.5-10.0) K/mm3 RBC 4.77 4.81 (4.6-6.20) M/mm3 Hgb 13.3 L 13.6 L (14.0-18.0) g/dL Hct 41.2 L 45.8 (42.0-52.0) % Plt Count 381 H 299 (150-375) k/mm3 Lymph # (Auto) 2.04 2.19 (0.9-3.2) K/mm3 [place] # (Auto) 1.5 H 1.1 H (0.1-0.6) K/mm3 Eos # (Auto) 0.2 0.9 H (0-0.3) K/mm3 Baso # (Auto) 0.0 0.1 (0.0-0.1) K/mm3 Comprehensive Metabolic Panel 08/06/25 08/07/25 Range/Units 14:22 06:34 Sodium 136 L 135 L (137-145) mmol/L Potassium 4.0 4.2 (3.4-5.0) mmol/L Chloride 103 101 (98-107) mmol/L Carbon Dioxide 24 26 (22-30) mmol/L BUN 51 H 50 H (9-20) mg/dL Creatinine 1.33 H 1.44 H (0.7-1.3) mg/dL Glucose 117 H 137 H (65-110) mg/dL Calcium 8.5 8.3 L (8.4-10.2) mg/dL AST 73 H (17-59) U/L ALT 103 H (6-50) U/L Alkaline Phosphatase 101 (38-126) U/L Total Protein 5.8 L (6.3-8.2) g/dL Albumin 3.2 L (3.5-5.1) g/dL Intake and Output 08/06/25 08/07/25 08/07/25 23:59 07:59 15:59 Intake Total 311.7 379.2 Output Total 201 200 Balance 110.7 179.2 Intake: IV 71.7 379.2 Heparin Sod/D5w 100 Units/ml 25 71.7 79.2 ,000 units In 250 ml @ 800 UNITS/HR 8 mls/hr IV CONT .Q24H [facility] Rx#:[id number] Azithromycin IV 500 mg In 250 Sodium Chloride 0.9% IV 250 ml @ 250 mls/hr IVPB Q24H [facility] Rx#: [id number] [id number] 1 gm In Sodium 50 Chloride 0.9% IV 50 ml @ 100 mls/hr IVPB Q24H [facility] Rx#: [id number] Oral 240 Output: Urine 200 200 Output, Urine/Stool Mix Amount 1 Other: Intake, Other Source NPO # Unmeasured Voids 1 2 Number of Bowel Movements Today 1 Patient Weight 08/07/25 23:59 Weight 68.8 kg Imaging and Cardiology Echo: report reviewed (ENIO 08/20/24: EF of 40-50% with mild TR ) EKG results: image reviewed (atrial flutter rate of 108bpm no acute ST/T wave changes )
[2025-08-07] MEDS: FLUTICASONE/UMECLIDIN/VILANTER 200-62.5-25 MCG ELLIPTA 1 PUFF INHALATION (08:45)
[2025-08-07] MEDS: METOPROLOL SUCCINATE EXT REL 25 MG TABCR PO (10:57)
[2025-08-07 11:23] LABS: Alanine Aminotransferase 104 U/L (6-50); Albumin Level 3.3 g/dL (3.5-5.1); Alkaline Phosphatase 97 U/L (38-126); Anion Gap 9 mmol/L (4-12); Aspartate Amino Transferase 61 U/L (17-59); Bilirubin,Total 0.7 mg/dL (0.2-1.3); Blood Urea Nitrogen 45 mg/dL (9-20); Calcium 8.4 mg/dL (8.4-10.2); Carbon Dioxide 22 mmol/L (22-30); Chloride 104 mmol/L (98-107); Estimated CRCL calculation 45 ml/min; Estimated Glomerular Filt Rate 56; Glucose 109 mg/dL (65-110); Potassium 3.7 mmol/L (3.4-5.0); Sodium 135 mmol/L (137-145); Total Protein 6.2 g/dL (6.3-8.2)
[2025-08-07 11:25] LABS: Magnesium 2.3 mg/dL (1.6-2.3)
[2025-08-07 11:38] LABS: Troponin I 0.333 ng/mL (0.000-0.034)
[2025-08-07 11:52] LABS: Thyroid Stimulating Hormone Reflex 2.620 uIU/mL (0.465-4.68)
--- NOTE | 2025-08-07 11:58 | PM.IMHP ---
H&P: HPI History of Present Illness Date/Time: 08/06/25 1500 Chief Complaint: Shortness of breath and chest pain Narrative: plate injury due to downtime 74-year-old male who past medical history of asthma, cardiomyopathy s/p permanent pacemaker, CHF, COPD, hypertension presents to [facility] ED on 08/06/2025 with complaints of shortness of breath and chest pain. Patient states it has been intermittently happening since May but became worse over this past week. This morning the patient's symptoms were worse and he felt that his heart rate was elevated. No history of AFib or flutter. Patient had been at urgent care earlier this week and was prescribed a Z-Mariano and Tessalon Perles for a possible COPD exacerbation. He admits to intermittent coughing as well. Also endorses more than his usual leg swelling. Please note, limited past results and procedures are available for review as the packet sent with the patient pertain to his visit in the ED today. at outside facility patient had multiple abnormal labs, notably WBC 14.82, D-dimer 1458, glucose 137, BUN 46, creatinine 1.58, troponin 1110 EKG with AFib RVR rate 124 Positing for Flu A & B Attempted BiPAP on patient due to respiratory distress but he was too claustrophobic and refused. He was on a non-rebreather for short time 500 mL bolus given. Concerned that additional fluid with further compromised respiratory status. By the time patient transferred [facility], he is no longer short of breath and his heart rate has improved. Still in AFib. Heparin drip per protocol started at outside hospital. Updated CBC, CMP, coagulation studies, troponin ordered when patient arrived. Review of Systems Review of Systems: All systems reviewed & are unremarkable except as noted in HPI and below PMFSH Family History Family History (Updated 08/06/25 @ 15:37 by Rayna Devlin RN) Father Cerebrovascular accident Social History Social History Smoking status: Never smoker Alcohol intake: current Drinks per week: 1 Substance use: never Lack of Transportation: No Lack of Food: Never True Current Housing: I Have Housing Concerned About Future Housing: No Difficulty Paying Gas/Electric Bills: No Difficulty Paying for Meds: No Currently Unemployed: No Education: Don't Know Difficulty w/ Childcare or Family Care: No Spiritual care concerns: No Meds Home Medications and Allergies Home Medications ?Medication ?Instructions ?Recorded ?Confirmed ?Type albuterol 90 mcg-budesonide 80 2 inh inhalation .q4hr PRN 08/06/25 08/06/25 History mcg/actuation HFA aerosol inhaler shortness of breath or wheezing (Airsupra) albuterol sulfate 90 mcg/actuation 2 puff inhalation Q6H PRN 08/06/25 08/06/25 History aerosol inhaler shortness of breath or wheezing benzonatate 200 mg capsule 200 mg PO TID PRN cough 08/06/25 08/06/25 History fluticasone fur. 200 mcg-umeclid 1 inh inhalation Q24H 08/06/25 08/06/25 History 62.5 mcg-vilant 25 mcg inhalat.powder (Trelegy Ellipta) latanoprost 0.005 % eye drops 1 drp EACH EYE HS 08/06/25 08/06/25 History metoprolol succinate 25 mg 25 mg PO DAILY 08/06/25 08/06/25 History tablet,extended release 24 hr prednisone 20 mg tablet 20 mg PO DAILY PRN shortness of 08/06/25 08/06/25 History breath Allergies Allergy/AdvReac Type Severity Reaction Status Date / Time No Known Allergies Allergy Unverified 04/08/18 10:12 Vital Signs Vital Signs - 24 hr 08/06/25 14:00 08/06/25 14:01 08/06/25 15:52 Temperature 97.8 F 97.5 F L Pulse Rate 99 73 101 H Respiratory Rate 18 24 H Blood Pressure 108/73 111/65 Pulse Oximetry 100 96 Oxygen Delivery Oxygen Flow Rate 08/06/25 16:00 08/06/25 16:00 08/06/25 18:00 Temperature Pulse Rate 103 H 107 H Respiratory Rate Blood Pressure Pulse Oximetry Oxygen Delivery Room Air Oxygen Flow Rate 08/06/25 20:00 08/06/25 20:00 08/06/25 20:00 Temperature 97.8 F Pulse Rate 118 H 119 H Respiratory Rate 22 H Blood Pressure 109/73 Pulse Oximetry 96 Oxygen Delivery Room Air Oxygen Flow Rate 08/06/25 23:54 08/07/25 00:00 08/07/25 00:00 Temperature 97.8 F Pulse Rate 118 H 133 H Respiratory Rate 22 H Blood Pressure 123/79 Pulse Oximetry 98 Oxygen Delivery Room Air Oxygen Flow Rate 08/07/25 00:25 08/07/25 02:00 08/07/25 04:00 Temperature 97.8 F Pulse Rate 135 H 110 H 116 H Respiratory Rate 22 H Blood Pressure 107/78 Pulse Oximetry 99 Oxygen Delivery Oxygen Flow Rate 08/07/25 04:00 08/07/25 04:00 08/07/25 05:30 Temperature Pulse Rate 117 H 135 H Respiratory Rate 28 H Blood Pressure Pulse Oximetry 98 Oxygen Delivery Room Air BiPAP Oxygen Flow Rate 08/07/25 05:52 08/07/25 07:54 08/07/25 08:46 Temperature 96.3 F L Pulse Rate 107 H 99 109 H Respiratory Rate 24 H 14 Blood Pressure 94/66 L Pulse Oximetry 100 Oxygen Delivery Oxygen Flow Rate 08/07/25 08:50 08/07/25 09:02 08/07/25 10:57 Temperature Pulse Rate 109 H 106 H 110 H Respiratory Rate 18 Blood Pressure Pulse Oximetry 100 98 Oxygen Delivery Nasal Cannula Room Air Oxygen Flow Rate 2 08/07/25 11:02 08/07/25 11:06 Temperature Pulse Rate 111 H Respiratory Rate Blood Pressure 107/81 107/81 Pulse Oximetry Oxygen Delivery Oxygen Flow Rate Exam Narrative: GENERAL: non-toxic appearing, in no acute distress. HEAD: Normocephalic, atraumatic. EYES: PERRLA. Conjunctivae clear. NOSE: Normal no drainage. THROAT: Pharynx clear, no exudate. NECK: Trachea midline. No adenopathy, no masses. RESPIRATORY: Airway patent, respirations nonlabored. CTA with the exception of left lower lobe which has wheezes. CARDIOVASCULAR: Irregular rate and rhythm. S1-S2 heard GASTROINTESTINAL: Abdomen is soft and nontender. No organomegaly. Bowel sounds normal in all quadrants. GENITOURINARY: Defer MUSCULOSKELETAL: Moves all extremities. No gross deformities. SKIN: Warm, dry, normal color. Bilateral lower extremity edema 2+ NEURO: A&O X4. Speech clear PSYCHIATRIC: Normal interaction H&P: Results Labs Labs: Short CBC 08/06/25 08/07/25 Range/Units 14:22 04:13 WBC 13.7 H 11.9 H (4.5-10.0) K/mm3 Hgb 13.3 L 13.6 L (14.0-18.0) g/dL Hct 41.2 L 45.8 (42.0-52.0) % Plt Count 381 H 299 (150-375) k/mm3 BMP 08/06/25 08/07/25 08/07/25 14:22 06:34 10:41 Sodium 136 L 135 L 135 L Potassium 4.0 4.2 3.7 Chloride 103 101 104 Carbon Dioxide 24 26 22 BUN 51 H 50 H 45 H Creatinine 1.33 H 1.44 H 1.25 Glucose 117 H 137 H 109 Calcium 8.5 8.3 L 8.4 Cardiac Enzymes 08/06/25 08/07/25 Range/Units 17:18 10:41 Troponin I 0.591 H* 0.333 H* (0.000-0.034) ng/mL Liver Function 08/07/25 08/07/25 Range/Units 06:34 10:41 Total Bilirubin 0.6 0.7 (0.2-1.3) mg/dL AST 73 H 61 H (17-59) U/L ALT 103 H 104 H (6-50) U/L Alkaline Phosphatase 101 97 (38-126) U/L Albumin 3.2 L 3.3 L (3.5-5.1) g/dL Assessment and Plan Assessment and plan (1) Atrial flutter: Qualifiers: Atrial flutter type: unspecified Qualified Code(s): I48.92 - Unspecified atrial flutter Code(s): I48.92 - Unspecified atrial flutter Status: Acute Assessment and Plan: Presents with shortness of breath at outside hospital. EKG with AFib RVR rate 124 Patient given dose of Cardizem at outside hospital,causing his blood pressure to drop into the 80s over 60s. Rate did improve to 118 before transfer -Cardiology consult -HR 73 on admission to [facility] -continue with heparin gtt -may consider starting amiodarone drip -updated EKG ordered (2) Cardiomyopathy: Qualifiers: Cardiomyopathy type: unspecified Qualified Code(s): I42.9 - Cardiomyopathy, unspecified Code(s): I42.9 - Cardiomyopathy, unspecified Status: Acute Assessment and Plan: Noted in patient's history in outside facility transfer packet. No previous echocardiogram available in chart. -echo ordered (3) Pneumonia: Qualifiers: Laterality: unspecified laterality Lung location: unspecified part of lung Pneumonia type: due to unspecified organism Qualified Code(s): J18.9 - Pneumonia, unspecified organism Code(s): J18.9 - Pneumonia, unspecified organism Status: Acute Assessment and Plan: Chest x-ray at outside hospital reveals moderately large right lung base patchy infiltrate. Small right-sided pleural effusion. Small left retrocardiac infiltrate and left suprahilar infiltrate. Patient is currently not in respiratory distress. -azithromycin and ceftriaxone started on 08/06 -trend CBC -DuoNeb p.r.n. -Tylenol p.r.n. (4) DVT (deep venous thrombosis): Qualifiers: Affected thrombotic vein of extremity: other lower extremity vein Chronicity: acute DVT location: lower extremity Laterality: bilateral Qualified Code(s): I82.493 - Acute embolism and thrombosis of other specified deep vein of lower extremity, bilateral Code(s): I82.409 - Acute embolism and thrombosis of unspecified deep veins of unspecified lower extremity Status: Acute Assessment and Plan: D-dimer 1458 at outside facility. Patient does have bilateral lower extremity swelling and admits to decreased activity due to not feeling well. -bilateral lower extremity Dopplers ordered -continue heparin gtt -concern for PE-V/Q scan ordered due to patient's SENDY on CKD Plan Diet: Heart healthy GI prophylaxis: NA DVT prophylaxis: Heparin gtt lines/drains: PIV Fluids: NA Code status: Full Quality VTE Prophylaxis VTE prophylaxis: pharmacologic ordered Hospitalist [facility] Advance Care Plan I have confirmed that the patient's Advanced Care Plan is present, code status is documented, or surrogate decision maker is listed in patient medical record.: Yes Medication Reconciliation I have utilized all available resources to obtain, update and review the patients current medications (includes all prescriptions, OTC, herbals, cannabis, and nutritional supplements).: Yes
[2025-08-07] MEDS: PERFLUTREN LIPID MICROSPHERES 1.5 ML VIAL DILUTED TO 10 ML TOTAL VOLUME IV PUSH (12:07)
--- NOTE | 2025-08-07 12:07 | IVDEFINITY ---
Prior to administration of IV Definity the patient was educated on the risks and benefits of the imaging enhancing agent including potential adverse side effects. The patient verbalized understanding. Allergies were verified. No exclusion criteria were identified and at least one of the following inclusion criteria were met: 1) physician request, 2) patient technically difficult to image (per the [place] [employer] guidelines of two or more segments not discernable within the apical view), or 3) questionable left ventricular function. ?
[2025-08-07 12:31] LABS: Partial Thromboplastin Time 39.0 Seconds (22.3-36.8)
--- NOTE | 2025-08-07 14:51 | P.PNIM_ITS ---
Progress Note: A&P Assessment and Plan (1) Atrial flutter: Code(s): I48.92 - Unspecified atrial flutter Status: Acute (2) Cardiomyopathy: Code(s): I42.9 - Cardiomyopathy, unspecified Status: Acute (3) Pneumonia: Code(s): J18.9 - Pneumonia, unspecified organism Status: Acute (4) DVT (deep venous thrombosis): Qualifiers: DVT location: lower extremity Chronicity: acute Code(s): I82.409 - Acute embolism and thrombosis of unspecified deep veins of unspecified lower extremity Status: Acute Plan This is a 74-year-old male who presented to [facility] on 08/06/2025 with complaint of shortness of breath and chest pain. Intermittently happening since May worse over the past week. He fell held his heart rate was elevated. No prior history of AFib or flutter. He had been to the urgent care earlier this week and was prescribed Z-Mariano and Tessalon Perles for possible COPD exacerbation. Intermittent coughing reported. No 5 He was found to have elevated troponin at outside hospital noted to be in a flutter with RVR. He was then transferred for further treatment. A flutter with RVR has been started on IV amiodarone. Due to borderline blood pressure anticoagulated with heparin drip. TSH is normal DVT noted to have elevated D-dimer. Venous duplex showed bilateral DVT started on IV heparin. Shortness of breath likely due to a flutter [place] [id number]. Chest x-ray with some interstitial edema. Received IV Lasix at outside hospital. Elevated D-dimer as well V/Q scan indeterminate. Continue diuretics and antibiotics as ordered. Cardiology consulted for CHF Congestive heart failure acute on chronic history of nonischemic cardiomyopathy with ejection fraction last year 40% continue IV diuresis. Repeat echo 08/07/2025 with EF 20% moderate mitral regurgitation Pneumonia history of flu a and flu B Elevated troponin 0.591-0.333 DVT prophylaxis on IV heparin Code status full code Subjective Date/time seen: 08/07/25 14:51 Interval history: Feels better. Still heart rate elevated. Shortness of breath with exertion. No leg swelling. No chest pain Review of Systems Review of Systems: All systems reviewed & are unremarkable except as noted in HPI and below Exam Narrative: GENERAL: non-toxic appearing, in no acute distress. HEAD: Normocephalic, atraumatic. EYES: PERRLA. Conjunctivae clear. RESPIRATORY: Airway patent, respirations nonlabored. CTA. CARDIOVASCULAR: Tachycardic, without murmurs, rubs, or gallops. GASTROINTESTINAL: Abdomen is soft and nontender. No organomegaly. Bowel sounds normal in all quadrants. MUSCULOSKELETAL: Moves all extremities. No gross deformities. Moves all extremities well. No calf tenderness. SKIN: Warm, dry, normal color. NEURO: A&O X4. Speech clear PSYCHIATRIC: Normal interaction Objective Data Vital Signs Vital Signs: Vital Signs - 24 hr 08/06/25 15:52 08/06/25 16:00 08/06/25 16:00 Temperature 97.5 F L Pulse Rate 101 H 103 H Respiratory Rate 24 H Blood Pressure 111/65 Pulse Oximetry 96 Oxygen Delivery Room Air Oxygen Flow Rate 08/06/25 18:00 08/06/25 20:00 08/06/25 20:00 Temperature 97.8 F Pulse Rate 107 H 118 H Respiratory Rate 22 H Blood Pressure 109/73 Pulse Oximetry 96 Oxygen Delivery Room Air Oxygen Flow Rate 08/06/25 20:00 08/06/25 23:54 08/07/25 00:00 Temperature 97.8 F Pulse Rate 119 H 118 H Respiratory Rate 22 H Blood Pressure 123/79 Pulse Oximetry 98 Oxygen Delivery Room Air Oxygen Flow Rate 08/07/25 00:00 08/07/25 00:25 08/07/25 02:00 Temperature Pulse Rate 133 H 135 H 110 H Respiratory Rate Blood Pressure Pulse Oximetry Oxygen Delivery Oxygen Flow Rate 08/07/25 04:00 08/07/25 04:00 08/07/25 04:00 Temperature 97.8 F Pulse Rate 116 H 117 H Respiratory Rate 22 H Blood Pressure 107/78 Pulse Oximetry 99 Oxygen Delivery Room Air Oxygen Flow Rate 08/07/25 05:30 08/07/25 05:52 08/07/25 07:54 Temperature 96.3 F L Pulse Rate 135 H 107 H 99 Respiratory Rate 28 H 24 H Blood Pressure 94/66 L Pulse Oximetry 98 100 Oxygen Delivery BiPAP Oxygen Flow Rate 08/07/25 08:46 08/07/25 08:50 08/07/25 09:02 Temperature Pulse Rate 109 H 109 H 106 H Respiratory Rate 14 18 Blood Pressure Pulse Oximetry 100 98 Oxygen Delivery Nasal Cannula Room Air Oxygen Flow Rate 2 08/07/25 10:57 08/07/25 11:02 08/07/25 11:06 Temperature Pulse Rate 110 H 111 H Respiratory Rate Blood Pressure 107/81 107/81 Pulse Oximetry Oxygen Delivery Oxygen Flow Rate 08/07/25 11:58 08/07/25 14:00 Temperature 97.5 F L 97.5 F L Pulse Rate 115 H 112 H Respiratory Rate 24 H 20 Blood Pressure 90/64 L 112/71 Pulse Oximetry 91 97 Oxygen Delivery Oxygen Flow Rate Intake/Output Intake/Output: Intake & Output 08/04/25 08/05/25 08/06/25 08/07/25 23:59 23:59 23:59 23:59 Intake Total 311.7 499.2 Output Total 201 200 Balance 110.7 299.2 Meds/Results Medications: Active Medications Generic Name Dose Route Start Last Admin Trade Name Freq PRN Reason Stop Dose Admin Acetaminophen 650 mg 08/06/25 14:13 Acetaminophen 325 Mg Tablet PO Q4H PRN Mild Pain (1-3) or Fever Benzonatate 200 mg 08/06/25 20:37 Benzonatate 100 Mg Capsule PO TID PRN cough Fluticasone/Umeclidinium/Vilanterol 1 puff 08/07/25 08:00 08/07/25 08:45 Fluticasone/Umeclidin/Vilanter 200-62.5-25 Mcg Ellipta INHALATION 1 puff DAILYRT MANUEL Administration Heparin Sodium (Porcine) 4,000 units 08/06/25 14:16 08/06/25 15:22 Heparin Sodium 5,000 Units/Ml Vial IV PUSH 4,000 units PRN PRN Administration aPTT less than 55 seconds Heparin Sodium (Porcine) 2,500 units 08/06/25 14:16 Heparin Sodium 5,000 Units/Ml Vial IV PUSH PRN PRN aPTT 55 - 70 seconds Heparin Sodium/Dextrose 25,000 units in 250 mls @ 9 mls/hr 08/06/25 14:20 08/07/25 06:00 Heparin Sodium/D5w 100 Units/Ml IV CONT 900 units/hr .Q24H MANUEL 9 mls/hr Protocol Titration 900 UNITS/HR Ceftriaxone Sodium 1 gm/ 50 mls @ 100 mls/hr 08/07/25 02:00 08/07/25 05:49 Sodium Chloride IVPB Infused Q24H MANUEL Infusion Azithromycin 500 mg/ Sodium 250 mls @ 250 mls/hr 08/07/25 02:00 08/07/25 05:49 Chloride IVPB 08/11/25 02:59 Infused Q24H MANUEL Infusion Amiodarone HCl/Dextrose 360 mg in 200 mls @ 33.333 mls/hr 08/07/25 09:03 08/07/25 11:02 Nexterone 360 Mg/D5w 200 Ml IV CONT 08/07/25 15:02 1 mg/min .Q6H ONE 33.33 mls/hr 1 MG/MIN Administration Amiodarone HCl/Dextrose 360 mg in 200 mls @ 16.667 mls/hr 08/07/25 15:03 Nexterone 360 Mg/D5w 200 Ml IV CONT .Q12H MANUEL 0.5 MG/MIN Latanoprost 1 drop 08/06/25 21:00 08/06/25 21:43 Latanoprost 0.005% Op Soln 2.5 Ml Btl EACH EYE 1 drop HS MANUEL Administration Metoprolol Succinate 25 mg 08/07/25 09:00 08/07/25 10:57 Metoprolol Succinate Ext Rel 25 Mg Tabcr PO 25 mg DAILY MANUEL Administration Ondansetron HCl 4 mg 08/06/25 14:13 Ondansetron Inj 4 Mg/2 Ml Vial IV PUSH Q6H PRN Nausea And Vomiting Radiology Results: ITS Impressions Venous Doppler Study 08/06/25 21:18 IMPRESSION: Bilateral DVT. Chest X-Ray 08/07/25 07:34 Impression: 1: Mild interstitial edema. Pulmonary Perfusion Imaging 08/07/25 11:45 IMPRESSION: 1. Nondiagnostic (low or intermediate) probability for pulmonary embolism. Labs Labs: Laboratory Results - last 24 hr 08/06/25 08/06/25 08/06/25 14:29 17:18 21:13 WBC RBC Hgb Hct MCV MCH MCHC RDW Plt Count MPV Immature Gran % (Auto) Neut % (Auto) Lymph % (Auto) Esmeralda % (Auto) Eos % (Auto) Baso % (Auto) Lymph # (Auto) Esmeralda # (Auto) Eos # (Auto) Baso # (Auto) Abs Immat Gran (auto) Absolute Neuts (auto) Absolute Nucleated RBC Band Neutrophils % Nucleated RBC % Platelet Estimate Hypochromasia Schistocytes PT 16.3 H INR 1.3 APTT 47.5 H 88.1 H Puncture Site ABG pH ABG pCO2 ABG pO2 ABG PO2/FiO2 Ratio ABG HCO3 ABG O2 Saturation ABG O2 Content ABG Base Excess A-a Gradient Oxyhemoglobin Carboxyhemoglobin Methemoglobin Reduced Hemoglobin Total Hemoglobin O2 Delivery Device O2 Liters/Min Vent Rate FiO2 Expiratory Pressure Inspiratory Pressure Sodium Potassium Chloride Carbon Dioxide Anion Gap BUN Creatinine Estim Creat Clear Calc Estimated GFR Glucose Lactic Acid 2.2 H 2.2 H Calcium Magnesium Total Bilirubin AST ALT Alkaline Phosphatase Troponin I 0.591 H* Total Protein Albumin TSH (Reflex) 08/07/25 08/07/25 08/07/25 04:13 05:37 06:34 WBC 11.9 H RBC 4.81 Hgb 13.6 L Hct 45.8 MCV 95.2 D MCH 28.3 MCHC 29.7 L RDW 13.4 Plt Count 299 MPV 9.4 Immature Gran % (Auto) 2.4 H Neut % (Auto) 61.2 Lymph % (Auto) 18.4 Esmeralda % (Auto) 9.2 H Eos % (Auto) 7.7 H Baso % (Auto) 1.1 Lymph # (Auto) 2.19 Esmeralda # (Auto) 1.1 H Eos # (Auto) 0.9 H Baso # (Auto) 0.1 Abs Immat Gran (auto) 0.29 H Absolute Neuts (auto) 7.3 H Absolute Nucleated RBC 0.000 Band Neutrophils % Not Reportable Nucleated RBC % 0.0 Platelet Estimate Adequate Hypochromasia 1+ Schistocytes None seen PT INR APTT > 200.0 H* Puncture Site Right brachial ABG pH 7.463 H ABG pCO2 24.8 L ABG pO2 131.7 H ABG PO2/FiO2 Ratio 4.39 ABG HCO3 17.4 L ABG O2 Saturation 98.8 ABG O2 Content 20.3 ABG Base Excess -4.5 A-a Gradient 53.1 Oxyhemoglobin 98.2 Carboxyhemoglobin 0.2 Methemoglobin 0.3 Reduced Hemoglobin 1.3 Total Hemoglobin 14.6 O2 Delivery Device Non-invasive vent O2 Liters/Min Not Reportable Vent Rate 10 FiO2 30 Expiratory Pressure 6 Inspiratory Pressure 12 Sodium 135 L Potassium 4.2 Chloride 101 Carbon Dioxide 26 Anion Gap 8 BUN 50 H Creatinine 1.44 H Estim Creat Clear Calc 39 Estimated GFR 48 L Glucose 137 H Lactic Acid Calcium 8.3 L Magnesium Total Bilirubin 0.6 AST 73 H ALT 103 H Alkaline Phosphatase 101 Troponin I Total Protein 5.8 L Albumin 3.2 L TSH (Reflex) 08/07/25 08/07/25 10:41 12:08 WBC RBC Hgb Hct MCV MCH MCHC RDW Plt Count MPV Immature Gran % (Auto) Neut % (Auto) Lymph % (Auto) Esmeralda % (Auto) Eos % (Auto) Baso % (Auto) Lymph # (Auto) Esmeralda # (Auto) Eos # (Auto) Baso # (Auto) Abs Immat Gran (auto) Absolute Neuts (auto) Absolute Nucleated RBC Band Neutrophils % Nucleated RBC % Platelet Estimate Hypochromasia Schistocytes PT INR APTT 39.0 H Puncture Site ABG pH ABG pCO2 ABG pO2 ABG PO2/FiO2 Ratio ABG HCO3 ABG O2 Saturation ABG O2 Content ABG Base Excess A-a Gradient Oxyhemoglobin Carboxyhemoglobin Methemoglobin Reduced Hemoglobin Total Hemoglobin O2 Delivery Device O2 Liters/Min Vent Rate FiO2 Expiratory Pressure Inspiratory Pressure Sodium 135 L Potassium 3.7 Chloride 104 Carbon Dioxide 22 Anion Gap 9 BUN 45 H Creatinine 1.25 Estim Creat Clear Calc 45 Estimated GFR 56 L Glucose 109 Lactic Acid Calcium 8.4 Magnesium 2.3 Total Bilirubin 0.7 AST 61 H ALT 104 H Alkaline Phosphatase 97 Troponin I 0.333 H* Total Protein 6.2 L Albumin 3.3 L TSH (Reflex) 2.620
[2025-08-07] MEDS: HEPARIN SOD/D5W 100 UNITS/ML 25,000 UNITS/250 ML BAG 12 UNITS IV CONT (18:05)
[2025-08-07] MEDS: LATANOPROST 0.005% OP SOLN 2.5 ML BTL 1 DROP EACH EYE (21:09)
[2025-08-07 23:00] LABS: Partial Thromboplastin Time > 200.0 Seconds (22.3-36.8)
[2025-08-08] VITALS (15 sets, daily range): BP systolic 58–119; BP diastolic 12–67; PULSE 30–123; RESP 18–33; TEMP 33.6–36.6; O2SAT 60–99
[2025-08-08] MEDS: MELATONIN 5 MG TABLET 10 MG PO (01:27)
[2025-08-08] MEDS: AZITHROMYCIN IV 500 MG in SODIUM CHLORIDE 0.9% IV 250 ML IVPB (01:37)
[2025-08-08] MEDS: cefTRIAXone 1 GM in SODIUM CHLORIDE 0.9% IV 50 ML 100 ML IVPB (01:39)
--- NOTE | 2025-08-08 02:08 | PC.NURSE ---
0200 Bed alarm sounded as patient sat to side of bed without staff assistance. Female friend, at bedside, turned bed alarm off prior to staff arriving in room. This RN discussed with individual to leave bed alarm on until staff arrive. Reinforced the importance of the bed alarm utilized for patient safety. It's annoying and I'm right here. Repeated request to leave bed alarm on for patient safety until staff arrive in room.
--- NOTE | 2025-08-08 03:01 | P.RRN_ITS ---
Critical Care Event Note Summary Code activated: Yes Narrative: This case had a high probability of a clinically significant, sudden, or life threatening deterioration of this patient's condition which required my full and direct attention, intervention and personal management. A rapid response was called and the patient had agonal breathing. The patient had a BiPAP on and was not able to tolerated the pressure . no pulse was noted and CPR had been initiated. The ER physician came into the room and intubated the patient and placed a central line. Please see code sheet as documented per ED provider. Please see code sheet. I did call integrity analyst to receive vent settings and sedation. The integrity analyst requested a stat CTA pulmonary. The patient was transferred to ICU ventilated and sedated. at this time the patient is not stable for cta pulmonary. The patient has been on a heparin drip. Critical care time: 30 - 74 mins
[2025-08-08] MEDS: ALBUMIN HUMAN 25% 25 GM/100 ML 100 ML IVPB (03:15)
[2025-08-08] MEDS: NOREPINEPHRINE 8 MG/D5W 250 ML 8 MG/250 ML BAG 56.25 MG IV CONT (03:15)
[2025-08-08] MEDS: PHENYLEPHRINE HCL INJ 50 MG in SODIUM CHLORIDE 0.9% IV 245 ML 36 ML IV CONT (03:31)
[2025-08-08] MEDS: VASOPRESSIN INJ 100 UNITS in DEXTROSE 5% 95 ML IV CONT (03:32)
[2025-08-08 03:36] LABS: Hematocrit 37.1 % (42.0-52.0); Hemoglobin 11.2 g/dL (14.0-18.0); Mean Corpuscular HGB Conc 30.2 g/dl (32-36); Mean Corpuscular Hemoglobin 28.1 pg (26-34); Mean Corpuscular Volume 93.0 fl (80-100); Platelet Count Result 280 k/mm3 (150-375); Red Blood Count 3.99 M/mm3 (4.6-6.20); White Blood Count 17.9 K/mm3 (4.5-10.0)
[2025-08-08 03:46] LABS: Albumin Level 2.4 g/dL (3.5-5.1); Alkaline Phosphatase 106 U/L (38-126); Anion Gap 20 mmol/L (4-12); Bilirubin,Total 0.7 mg/dL (0.2-1.3); Blood Urea Nitrogen 45 mg/dL (9-20); Calcium 6.6 mg/dL (8.4-10.2); Carbon Dioxide 11 mmol/L (22-30); Chloride 107 mmol/L (98-107); Estimated CRCL calculation 31 ml/min; Estimated Glomerular Filt Rate 36; Glucose 134 mg/dL (65-110); Magnesium 2.5 mg/dL (1.6-2.3); Potassium 4.6 mmol/L (3.4-5.0); Sodium 138 mmol/L (137-145); Total Protein 4.6 g/dL (6.3-8.2)
[2025-08-08 03:48] LABS: INR 2.5; Partial Thromboplastin Time 54.3 Seconds (22.3-36.8); Prothrombin Time 26.0 Seconds (11.1-14.7)
[2025-08-08] MEDS: MIDAZOLAM 100MG/NS 100ML(*CRX) 100 MG/100 ML BAG IV CONT (03:51)
[2025-08-08] MEDS: HEPARIN SOD/D5W 100 UNITS/ML 25,000 UNITS/250 ML BAG 10 UNITS IV CONT (03:52)
[2025-08-08 04:10] LABS: Band Neutrophils Percent 7 % (0-6); Eosinophils Absolute Manual 0.35 K/mm3 (0.02-0.50); Eosinophils Percent Manual 2 % (0-4); Lymphocytes Absolute Manual 3.04 K/mm3 (1.1-4.5); Lymphocytes Percent Manual 17.0 % (18-44); Monocytes Absolute Manual 1.79 K/mm3 (0.1-0.90); Monocytes Percent Manual 10 % (3-9); Neutrophils Absolute Manual 12.70 K/mm3 (1.3-6.7); Neutrophils Percent Manual 64 % (46-73); Total Cells Counted 100
[2025-08-08 04:11] LABS: Crenated RBC 1+; Schistocytes None Seen
[2025-08-08 04:22] LABS: Alanine Aminotransferase 1373 U/L (6-50); Aspartate Amino Transferase 1542 U/L (17-59)
--- NOTE | 2025-08-08 04:24 | PM.CCN ---
Critical Care Event Note Summary Code activated: Yes Narrative: This case had a high probability of a clinically significant, sudden, or life threatening deterioration of this patient's condition which required my full and direct attention, intervention and personal management. This is a 74-year-old male patient who recently coded in IMU. He was brought back to ICU and placed on at 3 vasopressors. He also was given IV bolus fluids and albumin. 0357 his heart rate decreased and he went into Pea. CPR was started and the patient was ventilated by using the Ambu bag. 0358 the patient was given a mg of epinephrine. 0359 the patient remained in PEA and was given sodium bicarb. CPR continued throughout. 0401 1 mg of epinephrine given be IV. The patient remains pulseless. CPR has been continued throughout patient remains in PEa. I spoke with the significant other and explained to her that this is the 3 rd time that we have coded him. I explained to the significant other that he is critically ill and that we have placed him on 3 pressors and we have been unable to sustain adequate pulse or blood pressure. We also were not able to obtain adequate ventilation with O2 sats being in the 60s. His chest x-ray shows that the ET tube and central line are both in place. We discussed whether not to continue with CPR and she stated that she would want us to attempt to get his pulse back this time. However after we get a pulse and we lose it again that she wants us to stop all efforts to resuscitate him. 0404 patient remains in PEa epinephrine 1 mg given IV. CPR continues throughout. 0405 patient has a heart rate of 77 sinus rhythm with PVCs. ABGs were obtained. Patient has severe metabolic acidosis. His blood pressures 45/29. Again I explained to the significant other that we have made several attempts with multiple vasopressors and have not been able to maintain a blood pressure. Again the significant other said that she does not want him resuscitated any further knee became a DNR 0418 the significant other was at the bedside. Respirations and pulse were undetectable. The patient had been manually ventilated through the ET tube and was not on the ventilator. The significant other again stated that she did not want any further life saving measures to be performed at this time. The patient's time of was 0418 Greater than 30 minutes for code + documentation + speaking with the significant other. Critical care time: 30 - 74 mins
[2025-08-08] MEDS: SODIUM BICARBONATE 8.4% 50 MEQ/50 ML SYRINGE 100 MEQ (04:29)
--- NOTE | 2025-08-08 04:33 | PC.NURSE ---
Patient transferred to ICU 2 at 0249 after intubation on IMU. AT 0357 Patient demarcus down to pulse of 30 then went PEA chest compressions started and code blue called. ROSC obtained at 0405. Decision was made to make patient DNR. Pulse was lost at 0418 with provider Cristine Cameron in room. Patient DNR status at this time all efforts were stopped.
--- NOTE | 2025-08-08 04:41 | ED.PROCEDURE ---
Procedures Central Line Placement Left SC: Central Line Date: 08/08/25 Central Line Time: 02:45 Performed Emergently - Given emergent patient condition, temporal constraints may have precluded informed consent.: Yes Consent: Emergent consent given CPR and cardiac arrest Time Out Performed: Yes Patient Position: supine Patient placed on monitor/pulse ox: Yes Provider Prep: cap, hand hygiene with conventional soap/water or alcohol based hand rub and emergent ? sterile barriers not used Central line prep: 2% Chlorhexidine scrub Central line lumen inserted: triple Kiswahili: 7 Length (cm): 16 Depth of Insertion (cm): 15 Post Procedure: sutured in place, good blood return, all ports aspirated, flushed, capped and transparent dressing Post procedure x-ray: tip of catheter in good position and no pneumothorax seen Patient tolerated procedure: well and no complications Complications: none Intubation Intubation Date: 08/08/25 Intubation Time: 02:33 Consent: Emergent during CPR A pre-procedural Time-Out was completed immediately before starting the procedure and confirmed: Patient Identification, Site, Procedure, Patient Position and the Availability of Requisite Equipment: Yes Sedative: none Laryngoscope: fiber optic video scope ET tube size: 7.5 Tube secured depth (cm): 25 Tube secured location: lips Tube placement confirmation: visualized tube passing through cords, equal breath sounds bilaterally, no breath sounds over epigastrium and confirmation by capnometry Patient tolerated procedure: well and no complications Intubation complications: none Additional comments: 2 attempts by MLP under my supervision with successful pass attempt by myself afterwards. Other Procedures Procedure 1: Other Procedure: Procedure: CPR Indication: Cardiac arrest Narrative: Warren zayas called to the IMU were patient was found pulseless after not being able to tolerate BiPAP therapy for his hypoxemic respiratory therapy. Warren zayas called at 2:23 a.m.. I wrapped to scene where patient had already received epinephrine on pulse checks with PE a arrest noted on the monitor. Patient was intubated after several attempts with mid-level provider and myself with a 7.5 ET tube at 25 but the lip. Patient did regained pulses quickly thereafter on subsequent pulse check. Biting down on the tube and finding ventilation. He was given Versed for sedation. Patient given a fluid bolus and lost pulses once again at 2:38 a.m.. Restart CPR with additional epinephrine and Levophed going at max rate of 30. Return of spontaneous circulation at 2:40 a.m., central line placed at 2:45 a.m., chest x-ray at 2:47 a.m. confirms placement of appropriate lines. Patient transfer to the ICU for further care. Hospitalist mid-level provider was present during resuscitation and code and transition of care returned to them at this time while transfer to the ICU.
--- NOTE | 2025-08-08 04:46 | PC.NURSE ---
08/07/25: Pt's bed alarm going off and Pt assessed. Pt found up out of bed in the bathroom. Pt's heart rate in the 120's, Pt is tachypneic in the upper 20's, SPO2 97-100% on 2L NC. Pt educated on the safety importance and waiting until staff arrives in the room to help him use the urinal. Pt educated that he remains on a heparin drip that causes him to be high risk for bleeding if an injury would occur. Pt education also provided that he currently is positive for influenza A and influenza B, as well as multiple DVT's to the BLE and is currently on an antiarrhythmic medications (amiodarone) for A-flutter w/RVR, which he remains in and that these issues also puts him at a high risk for injury. Pt voiced understanding.
[2025-08-08 04:48] LABS: MRSA (PCR) NOT DETECTED (NOT DETECTE)
[2025-08-08 04:54] LABS: Alveolar/Arterial O2 Gradient 202.1 mmHg; Fractional Inspired Oxygen 100 %; HCO3 ABG 9.6 mEq/l (22.0-26.0); Oxygen Content ABG 19.3 %vol (16.0-22.0); Oxygen Saturation ABG 99.8 % (95.0-100.0); PCO2 ABG 30.4 mmHg (35.0-45.0); PO2 ABG 480.5 mmHg (80.0-100.0); PO2 FiO2 Ratio Arterial Blood 4.80 %
--- NOTE | 2025-08-08 04:54 | PC.NURSE ---
08/07/25: Pt assessed and found sitting at the side of the bed w/legs dangling. Pt found w/his bed alarm off and the I-bed light flashing orange. When patient asked how the bed alarm got turned off, the patient and significant other states that they turned off the bed alarm so the patient could sit at the bedside. Pt re-educated on safety importance of the bed alarms and the risks involved of frequent ambulation/movement with his current multiple BLE DVT's. Both Pt and significant other states that they understand and will no longer touch the bed alarms.
[2025-08-08 04:56] LABS: Liters per Minute 15.0 LPM; Site Drawn LEFT FEMORAL
--- NOTE | 2025-08-08 05:00 | PC.NURSE ---
08/08/25: Pt's significant other came to the nurses station and states that the patient seems to be having a hard time breathing. Pt assessed and found with a heart rate remaining in the 120's, appearing as A-fib vs A-flutter w/RVR, respiratory rate in upper 20's/low 30's, SPO2 93-95% remaining on O2 2L NC. Pt's lung sounds remain clear diminished bilaterally per auscultation. Pt instructed/educated that due to his respiratory distress, he is now requiring to be placed on the BIPAP. Pt agreeable and Pt placed on the BIPAP at 0220. Pt attempting to pull the BIPAP mask off as soon as he was placed on it. 0221-Pt's now tachypneic in the upper 30's, SPO2 not currently reading, HR remains 120-130's (A-fib vs A-flutter w/RVR), patient lung sounds now with audible inspiratory wheezing. 0222-Pt less responsive to stimuli, noted to have a generalized skin color donaldson in appearance, and clammy/diaphoretic to touch. 0222-Rapid response called from the room. 0223-Pt no longer responding at all and no palpable pulse felt. Pt appears to be in PEA. 0223- Code Blue called and CPR initiated. Pt's significant other, Yamilet Lopez at bedside and assisted out of the room and updated per dye house supervisor, Inocencia James RN. of the current situation. See Code Blue sheet.
[2025-08-08 06:09] LABS: HCO3 ABG 9.6 mEq/l (22.0-26.0); PCO2 ABG 30.4 mmHg (35.0-45.0); PO2 ABG 480.5 mmHg (80.0-100.0)
[2025-08-08 06:11] LABS: Alveolar/Arterial O2 Gradient 202.1 mmHg; Carboxyhemoglobin 0.3 % THb (0-2.0); Oxygen Content ABG 19.3 %vol (16.0-22.0); Oxygen Saturation ABG 99.8 % (95.0-100.0)
[2025-08-08 06:12] LABS: Fractional Inspired Oxygen 100 %; Liters per Minute 15.0 LPM; Methemoglobin ABG 0.1 %THb (0-1.5); PO2 FiO2 Ratio Arterial Blood 4.80 %; Reduced Hemoglobin 0.2 %THb (0-5.0); Site Drawn LEFT FEMORAL
--- NOTE | 2025-08-11 21:47 | PM.DS ---
DS: Admitting Diagnosis Discharge Date 08/08/25 Admitting Diagnosis Atrial flutter, pneumonia, cardiomyopathy, DVT DS: Discharge Diagnosis Discharge Diagnosis (1) Cardiac arrest: Code(s): I46.9 - Cardiac arrest, cause unspecified Status: Acute Plan See code sheet DS: Summary Hospital Course Reason for hospitalization: Shortness of breath, pneumonia, and atrial flutter. Hospital Course: This is a 74-year-old male patient who has a history of asthma, cardiomyopathy status post permanent pacemaker, CHF, COPD, and hypertension. Who the patient was a direct admit from [facility] ED on 08/06/2025 with complaints of shortness of breath and chest pain. The patient was seen at an urgent care earlier in the week in was given a Z-Mariano and Tessalon Perles for possible COPD exacerbation. The patient was positive for flu a and B. a BiPAP was attempted due to respiratory distress and the patient was too claustrophobic to keep the mask on. He was given a bolus of fluids. The patient was noted to be in AFib when he came to the [facility]. The patient was started on heparin drip. DVT was noted in the had an elevated D-dimer. Venous Dopplers showed bilateral DVT new was started on heparin drip. The patient was short of breath most likely due to the flutter possible pneumonia. He did have an elevated BNP at 18,775. Chest x-ray had some interstitial edema. Patient was given IV Lasix. Patient had a repeat echo on 08/07/2025 and shows an EF of 20% moderate mitral regurgitation. Patient's elevated troponin was 0.59 to 0.33. Pulmonary perfusion imaging on 08/07/2025 was read as nondiagnostic probability for pulmonary embolism. On 08/08/2025 around 3:00 a.m. a rapid response was called due to the patient's agonal breathing. At that time no pulse was felt and CPR was initiated. The ER physician intubated the patient and placed a central line. The patient was started on 3 different types of vasopressors and given albumin. The patient coded for the 3rd time within an hour and his significant other made him a DNR. His time of was 4:18 a.m. on 08/08/2025. Time Spent with Patient Time attestation: Total time spent providing and/or coordinating discharge services: Discharge Plan Discharge Consulting providers: Harlan David; Sergo Pinzon; Samira Yang; Jenny Goins; Dilip Shen; Steve Rdz; Aurelio Taveras; Hugo Hodges; Neal Rayo Patient Disposition: Patient Language: Portuguese Discharge Medications: Discontinued Airsupra 90-80 mcg/actuation HFA aerosol inhaler 2 inh INHALATION .q4hr PRN (Reason: shortness of breath or wheezing) albuterol sulfate 90 mcg/actuation HFA aerosol inhaler 2 puff INHALATION Q6H PRN (Reason: shortness of breath or wheezing) benzonatate 200 mg capsule 200 mg PO TID PRN (Reason: cough) Trelegy Ellipta 200-62.5-25 mcg blister with device 1 inh INHALATION Q24H latanoprost 0.005 % drops 1 drp EACH EYE HS metoprolol succinate 25 mg tablet extended release 24 hr 25 mg PO DAILY prednisone 20 mg tablet 20 mg PO DAILY PRN (Reason: shortness of breath) Patient Comments: Reports that medication is taken prn when feeling of sickness begins Date of admission: 08/06/25 14:13 Primary Care Provider: Augustin,Rigoberto Akers Admitting Provider: Elio Vasquez Attending physician on admission: Cristine Cameron
--- NOTE | 2025-08-11 21:59 | PM.DDS ---
Discharge Summary Date and Time Date of : 08/08/25 Time of : 04:18 Provider Pronounced By: 2 RNs Name of First RN That Pronounced: Radha Otto RN Name of Second RN That Pronounced: Leana Maed RN Probable Cause of Probable Cause of : -pneumonia -respiratory failure -cardiac arrest Summary Hospital Course: [facility] [address] [place] [address] Discharge Summary Draft Patient: Robert Wilson MR#: [id number] : 1950 Acct:[id number] Age: 74 ADM Date: 08/06/25 Loc: [facility] ICU-[address]: Cristine Cameron APRN cc: ~ DS: Admitting Diagnosis Discharge Date 08/08/25 Admitting Diagnosis Atrial flutter, pneumonia, cardiomyopathy, DVT DS: Discharge Diagnosis Discharge Diagnosis (1) Cardiac arrest: Code(s): I46.9 - Cardiac arrest, cause unspecified Status: Acute Plan See code sheet DS: Summary Hospital Course Reason for hospitalization: Shortness of breath, pneumonia, DVT, and atrial flutter. Hospital Course: This is a 74-year-old male patient who has a history of asthma, cardiomyopathy status post permanent pacemaker, CHF, COPD, and hypertension. Who the patient was a direct admit from [facility] ED on 08/06/2025 with complaints of shortness of breath and chest pain. The patient was seen at an urgent care earlier in the week in was given a Z-Mariano and Tessalon Perles for possible COPD exacerbation. The patient was positive for flu a and B. a BiPAP was attempted due to respiratory distress and the patient was too claustrophobic to keep the mask on. He was given a bolus of fluids. The patient was noted to be in AFib when he came to the [facility]. The patient was started on heparin drip. DVT was noted in the had an elevated D-dimer. Venous Dopplers showed bilateral DVT new was started on heparin drip. The patient was short of breath most likely due to the flutter possible pneumonia. He did have an elevated BNP at 18,775. Chest x-ray had some interstitial edema. Patient was given IV Lasix. Patient had a repeat echo on 08/07/2025 and shows an EF of 20% moderate mitral regurgitation. Patient's elevated troponin was 0.59 to 0.33. Pulmonary perfusion imaging on 08/07/2025 was read as nondiagnostic probability for pulmonary embolism. On 08/08/2025 around 3:00 a.m. a rapid response was called due to the patient's agonal breathing. At that time no pulse was felt and CPR was initiated. The ER physician intubated the patient and placed a central line. The patient was started on 3 different types of vasopressors and given albumin. The patient coded for the 3rd time within an hour and his significant other made him a DNR. His time of was 4:18 a.m. on 08/08/2025. Time Spent with Patient Time attestation: Total time spent providing and/or coordinating discharge services: Additional Data Confirmation of as documented by pronouncing clinician: Pupillary Reflex, Palpable Pulses, Response to Stimuli, Heart Tones and Breath Sounds Name of Provider Notified: Cristine Cameron NP Time Provider Notified: 04:18 Was code activated?: Yes Provider Requests Autopsy: No Family Requests Autopsy: No Online Merchandising Manager Notified: Yes Date [facility] Notified of : 08/08/25 Time [facility] Notified of : 04:47
== END 2025-08-08 06:00 | disposition expired | DRG 208 ==
LOC: ANHICU 08-11 10:30 → ANHIMU 08-11 10:30
PROVIDERS: Internal Medicine; Nurse Practitioner Adult Health; Nurse Practitioner Family; Admitting Provider Family Medicine; PCP Family Medicine; Visit Provider Nurse Practitioner
DX: J18.9 Pneumonia, unspecified organism (principal); J96.90 Respiratory failure, unspecified, unspecified whether with hypoxia or hypercapnia; I48.92 Unspecified atrial flutter; I82.432 Acute embolism and thrombosis of left popliteal vein; I82.451 Acute embolism and thrombosis of right peroneal vein; I82.441 Acute embolism and thrombosis of right tibial vein; I46.9 Cardiac arrest, cause unspecified; I42.0 Dilated cardiomyopathy; J11.1 Influenza due to unidentified influenza virus with other respiratory manifestations; J44.0 Chronic obstructive pulmonary disease with (acute) lower respiratory infection; Z66 Do not resuscitate; I11.0 Hypertensive heart disease with heart failure; I50.9 Heart failure, unspecified; I34.0 Nonrheumatic mitral (valve) insufficiency; Z95.0 Presence of cardiac pacemaker
CPT/HCPCS: 31500; 36415; 36600; 71045; 78582; 80048; 80053; 82375; 82805; 82948; 83050; 83605; 83735; 84100; 84443; 84484; 85018; 85025; 85610; 85730; 87641; 92950; 93005; 93970; 94002; 94640; A9270; A9540; A9558; C1751; C8929; J0168; J0283; J0456; J0616; J0696; J1644; J2250; J2371; J3360; J7050; P9047; Q9957